=== PATIENT | male | born 1975 | race African-American/Black ===

== ENCOUNTER 2018-07-17 23:23 | Emergency (ER) | payer OTHER ==
--- NOTE | 2018-07-18 03:16 | ED ---
Complex/Multi-Sys Presentation - HPI Summary HPI Summary: This patient is a 42 year old M presenting to ED with a chief complaint of feeling funny since 07/17/182229. Patient took Percocet as prescribed Q4 post teeth extraction on 07/15/18. Patient took the pills every night. Tonight, he took Seroquel at night too close to the Percocet and felt funny. In the room, patient feels much better. The patient rates the pain 0/10 in severity. Symptoms aggravated by nothing. Symptoms alleviated by nothing. Patient denies fever, SOB. - History Of Current Complaint Chief Complaint: EDGeneral Hx Obtained From: Patient Onset/Duration: Lasting Hours - Since 2229 last night, Resolved Aggravating Factor(s): Nothing Alleviating Factor(s): Nothing Associated Signs And Symptoms: Negative: SOB, Fever - Allergies/Home Medications Allergies/Adverse Reactions: Allergies Allergy/AdvReac Type Severity Reaction Status Date / Time No Known Allergies Allergy Verified 07/17/18 23:27 PMH/Surg Hx/FS Hx/Imm Hx Respiratory History: Reports: Other Respiratory Problems/Disorders - sleep apnea Musculoskeletal History: Reports: Hx Scoliosis Denies: Hx Arthritis, Hx Back Problems, Hx Bursitis, Hx Congenital Bone Abnormalities, Hx Fibromyalgia, Hx Gout, Hx Orthopedic Injury, Hx Osteoporosis, Hx Tendonitis, Other Musculoskeletal History Psychiatric History: Reports: Hx Anxiety, Hx Eating Disorder, Hx Depression, Hx Panic Disorder, Hx Post Traumatic Stress Disorder, Hx Inpatient Treatment, Hx Community Mental Health Tx, Hx Bipolar Disorder, Hx Suicide Attempt, Hx of Violent Episodes Against Others Denies: Hx Attention Deficit Hyperactivity Disorder - Surgical History Surgery Procedure, Year, and Place: age 14, deviated seprum\broken nose - Immunization History Date of Tetanus Vaccine: PT NOT ANSWERING QUESTIONS Date of Influenza Vaccine: PT NOT ANSWERING QUESTIONS Infectious Disease History: No Infectious Disease History: Denies: Traveled Outside the US in Last 30 Days - Family History Known Family History: Positive: Non-Contributory - Social History Alcohol Use: None Hx Substance Use: Yes Substance Use Type: Reports: Marijuana Hx Tobacco Use: Yes Smoking Status (MU): Heavy Every Day Tobacco Smoker Review of Systems Negative: Fever Negative: Shortness Of Breath All Other Systems Reviewed And Are Negative: Yes Physical Exam - Summary Physical Exam Summary: Appearance:Well-appearing, Well-nourished, lying in bed comfortable Skin:Warm, dry, no obvious rash Eyes:sclera anicteric, no conjunctival pallor ENT:mucous membranes moist Neck:deferred Respiratory:No signs of respiratory distress Cardiovascular:Appears well perfused, pulses are nml Abdomen:deferred Musculoskeletal:Moving all 4 extremities without obvious discomfort Neurological:Awakeand alert, mentation is normal, speech is fluent and appropriate Psychiatric:affect is normal, does not appear anxious or depressed Triage Information Reviewed: Yes Vital Signs On Initial Exam: Initial Vitals Temp Pulse Resp BP Pulse Ox 98.1 F 120 16 128/76 98 07/17/18 23:25 07/17/18 23:25 07/17/18 23:25 07/17/18 23:25 07/17/18 23:25 Vital Signs Reviewed: Yes Diagnostics - Vital Signs Vital Signs Temp Pulse Resp BP Pulse Ox 07/17/18 23:25 98.1 F 120 16 128/76 98 - Laboratory Lab Statement: Any lab studies that have been ordered have been reviewed, and results considered in the medical decision making process. Complex Multi-Symp Course/Dx Course Of Treatment: This patient is a 42 year old M presenting to ED with a chief complaint of feeling funny since 07/17/182229. Patient will be discharged home with dx of medication reaction. Patient understands and agrees with this plan. - Diagnoses Provider Diagnoses: Medication reaction Discharge - Sign-Out/Discharge Documenting (check all that apply): Patient Departure - Discharge Patient Received Moderate/Deep Sedation with Procedure: No - Discharge Plan Condition: Stable Disposition: HOME Referrals: Dang Perez HAND COKE DRAWER [Primary Care Provider] - Additional Instructions: I would stop taking the percocet for now as it seems like that didn't mix well with your other medication. If you do need to take it again, make sure to take the seroquel at least a couple of hours later. - Billing Disposition and Condition Condition: STABLE Disposition: Home - Attestation Statements Document Initiated by Kylie: Yes Documenting Scribe: Wagner Beard Provider For Whom Kylie is Documenting (Include Credential): Mansoor Gray MD Scribe Attestation: Wagner Wu, scribed for Mansoor Gray MD on 07/19/18 at 0229. Scribe Documentation Reviewed: Yes Provider Attestation: The documentation as recorded by the Wagner murray accurately reflects the service I personally performed and the decisions made by me, Mansoor Gray MD Status of Scribe Document: Viewed
[2018-07-18 03:27] VITALS: BP 117/76
== END 2018-07-18 03:10 | disposition home or self-care (01) ==
LOC: ED 23:23
DX: T43.595A Adverse effect of other antipsychotics and neuroleptics, initial encounter (principal); R68.89 Other general symptoms and signs; Y92.9 Unspecified place or not applicable; F17.200 Nicotine dependence, unspecified, uncomplicated
CPT/HCPCS: 99282

== ENCOUNTER 2018-08-16 21:13 | Inpatient (IN) | payer OTHER ==
--- NOTE | 2018-08-16 22:04 | ED ---
Psychiatric Complaint - HPI Summary HPI Summary: This patient is a 42 year old M presenting to ED with a chief complaint of SI since 08/02/18. He has been very depressed and his therapist recommended he come here. Patient takes Seroquel and Neurontin. Patient reports having plans of overdose. The patient rates the pain 0/10 in severity. Symptoms aggravated by nothing. Symptoms alleviated by nothing. Patient denies fever. - History Of Current Complaint Chief Complaint: EDSuicidal Time Seen by Provider: 08/16/18 21:51 Hx Obtained From: Patient Onset/Duration: Lasting Weeks - 2 weeks, Still Present Character: Depressed Aggravating Factor(s): Nothing Alleviating Factor(s): Nothing Associated Signs And Symptoms: Positive: Social Withdrawal Related History: Positive For: Prior Psychiatric Issues Has Suicidal: Reports: Thoughts, With A Plan - Overdose - Allergies/Home Medications Allergies/Adverse Reactions: Allergies Allergy/AdvReac Type Severity Reaction Status Date / Time No Known Allergies Allergy Verified 08/16/18 21:18 Home Medications: Home Medications lamoTRIgine [Lamotrigine] 200 mg PO BEDTIME 08/17/18 [History Confirmed 08/17/18 ] PMH/Surg Hx/FS Hx/Imm Hx Respiratory History: Reports: Other Respiratory Problems/Disorders - sleep apnea Musculoskeletal History: Reports: Hx Scoliosis Denies: Hx Arthritis, Hx Back Problems, Hx Bursitis, Hx Congenital Bone Abnormalities, Hx Fibromyalgia, Hx Gout, Hx Orthopedic Injury, Hx Osteoporosis, Hx Tendonitis, Other Musculoskeletal History Psychiatric History: Reports: Hx Anxiety, Hx Eating Disorder, Hx Depression, Hx Panic Disorder, Hx Post Traumatic Stress Disorder, Hx Inpatient Treatment, Hx Community Mental Health Tx, Hx Bipolar Disorder, Hx Suicide Attempt, Hx of Violent Episodes Against Others Denies: Hx Attention Deficit Hyperactivity Disorder - Surgical History Surgery Procedure, Year, and Place: age 14, deviated seprum\broken nose - Immunization History Date of Tetanus Vaccine: PT NOT ANSWERING QUESTIONS Date of Influenza Vaccine: PT NOT ANSWERING QUESTIONS Infectious Disease History: No Infectious Disease History: Denies: Traveled Outside the US in Last 30 Days - Family History Known Family History: Positive: Non-Contributory - Social History Alcohol Use: None Hx Substance Use: Yes Substance Use Type: Reports: Marijuana Hx Tobacco Use: Yes Smoking Status (MU): Heavy Every Day Tobacco Smoker Review of Systems Negative: Fever Psychological: Other - SI Positive: Depressed All Other Systems Reviewed And Are Negative: Yes Physical Exam - Summary Physical Exam Summary: VITAL SIGNS: Reviewed. GENERAL: Patient is a well-developed and nourished male who is lying comfortable in the stretcher. Patient is not in any acute respiratory distress. HEAD AND FACE: No signs of trauma. No ecchymosis, hematomas or skull depressions. No sinus tenderness. EYES: PERRLA, EOMI x 2, No injected conjunctiva, no nystagmus. EARS: Hearing grossly intact. Ear canals and tympanic membranes are within normal limits. MOUTH: Oropharynx within normal limits. NECK: Supple, trachea is midline, no adenopathy, no JVD, no carotid bruit, no c- spine tenderness, neck with full ROM CHEST: Symmetric, no tenderness at palpation LUNGS: Clear to auscultation bilaterally. No wheezing or crackles. CVS: Regular rate and rhythm, S1 and S2 present, no murmurs or gallops appreciated. ABDOMEN: Soft, non-tender. No signs of distention. No rebound no guarding, and no masses palpated. Bowel sounds are normal. EXTREMITIES: FROM in all major joints, no edema, no cyanosis or clubbing. NEURO: Alert and oriented x 3. No acute neurological deficits. Speech is normal and follows commands. SKIN: Dry and warm Psych: somewhat withdrawn Triage Information Reviewed: Yes Vital Signs On Initial Exam: Initial Vitals Temp Pulse Resp BP Pulse Ox 98.2 F 104 16 131/79 99 08/16/18 21:16 08/16/18 21:16 08/16/18 21:16 08/16/18 21:16 08/16/18 21:16 Vital Signs Reviewed: Yes Diagnostics - Vital Signs Vital Signs Temp Pulse Resp BP Pulse Ox 08/16/18 21:16 98.2 F 104 16 131/79 99 - Laboratory Result Diagrams: 08/16/18 22:19 08/16/18 22:19 Lab Statement: Any lab studies that have been ordered have been reviewed, and results considered in the medical decision making process. Course/Dx - Course Course Of Treatment: This patient is a 42 year old M presenting to ED with a chief complaint of SI since 08/02/18. Blood work and UA obtained. Patient is medically cleared for [facility] at [facility]. Patient will be voluntarily admitted to [facility] with dx of unspecified depression by Dr. Kramer. Patient understands and agrees with this plan. - Differential Dx/Clinical Impression Provider Diagnosis: Depression Discharge - Sign-Out/Discharge Documenting (check all that apply): Patient Departure - Admit Patient Received Moderate/Deep Sedation with Procedure: No - Discharge Plan Condition: Fair Disposition: ADMITTED TO [facility] Referrals: Dang Perez STATION SUPERINTENDENT [Primary Care Provider] - - Attestation Statements Document Initiated by Scribe: Yes Documenting Scribe: Wagner Beard Provider For Whom Scribe is Documenting (Include Credential): Padmini Robbins MD Scribe Attestation: IWagner, scribed for Padmini Robbins MD on 08/17/18 at 0104. Status of Scribe Document: Ready
[2018-08-16 22:26] LABS: ABS Lymphocytes 0.9 10^3/ul (1.0-4.8); ABS Monocytes 0.6 10^3/ul (0-0.8); ABS Neutrophils 6.9 10^3/ul (1.5-7.7); Eosinophil % 0.5 %; Hematocrit 42 % (42-52); Hemoglobin 14.1 g/dL (14.0-18.0); Lymphocyte % 11.2 %; Mean Corpuscular HGB Conc 34 g/dL (31-36); Mean Corpuscular Hemoglobin 28 pg (27-31); Mean Corpuscular Volume 83 fL (80-94); Mean Platelet Volume 8.1 fL (7.4-10.4); Nucleated Red Blood Cells % 0.1; Platelet Count 197 10^3/uL (150-450); Red Blood Count 5.01 10^6 /uL (4.18-5.48); Red Cell Distribution Width 14 % (10-15); White Blood Count 8.5 10^3/uL (3.5-10.8)
[2018-08-16 22:41] LABS: ALT 24 U/L (7-52); AST 20 U/L (13-39); Albumin 4.6 g/dL (3.2-5.2); Albumin/Globulin Ratio 1.8 (1-3); Alkaline Phosphatase 82 U/L (34-104); Anion Gap 8 mmol/L (2-11); BUN/Creatinine Ratio 10.2 (8-20); Blood Urea Nitrogen 11 mg/dL (6-24); CO2 Carbon Dioxide 30 mmol/L (22-32); Calcium 9.4 mg/dL (8.6-10.3); Chloride 104 mmol/L (101-111); EGFR African American 90.3 (>60); EGFR Non-African American 74.6 (>60); Globulin 2.5 g/dL (2-4); Glucose 127 mg/dL (70-100); Potassium 3.4 mmol/L (3.5-5.0); Sodium 142 mmol/L (135-145); Total Protein 7.1 g/dL (6.4-8.9)
[2018-08-16 22:59] LABS: Acetaminophen < 15 mcg/mL; Alcohol < 10 mg/dL (<10); Salicylate < 2.50 mg/dL (<30)
[2018-08-16 23:14] LABS: TSH (Thyroid Stimulating Horm) 9.78 mcIU/mL (0.34-5.60)
[2018-08-17] MEDS ORDERED: Al Hydrox/Mg Hydrox/Simet LIQ* 30 ML UDC PO PRN (01:58)
[2018-08-17] MEDS ORDERED: Acetaminophen TAB* 325 MG PO PRN (01:58)
[2018-08-17] MEDS ORDERED: lamoTRIgine TAB(*) 100 MG PO SCH (09:00)
[2018-08-17] MEDS: Multivitamins/Minerals TAB PO SCH (11:04)
--- NOTE | 2018-08-17 13:05 | PN ---
BSU: Group Therapy Note - Service Type Service Type: [id number] Group Psychotherapy - Cognitive Behavioral Group Psychotherapy: Tommie was attentive to discussion this morning, presenting with flat and unvarying affect. He briefly responded to prompts to participate, but was not spontaneous in speech.
[2018-08-17 14:53] LABS: Urine Appearance Clear; Urine Bacteria Absent (Absent); Urine Bilirubin Negative (Negative); Urine Blood 1+ (Negative); Urine Color Yellow; Urine Glucose Negative (Negative); Urine Ketones Negative (Negative); Urine Nitrite Negative (Negative); Urine Protein Negative (Negative); Urine Red Blood Cell 2+(6-10/hpf) (Absent); Urine Specific Gravity 1.021 (1.010-1.030); Urine Squamous Epithelial Cell Present (Absent); Urine Urobilinogen Negative (Negative); Urine White Blood Cell Absent (Absent)
[2018-08-17 15:11] LABS: Urine Benzodiazepine Screen None Detected (None Detect); Urine Opiates Screen None Detected (None Detect)
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
[2018-08-17] MEDS ORDERED: QUEtiapine TAB* 300 MG PO SCH (21:00)
[2018-08-18 08:23] LABS: HDL Cholesterol 53.8 mg/dL
[2018-08-18] MEDS: Multivitamins/Minerals TAB PO SCH (09:03)
[2018-08-18 09:40] LABS: Free T4 0.74 ng/dL (0.61-1.12); TSH (Thyroid Stimulating Horm) 5.78 mcIU/mL (0.34-5.60)
[2018-08-18 09:43] LABS: Free T3 4.8 pg/mL (2.5-3.9)
--- NOTE | 2018-08-18 12:34 | PN ---
Subjective - Subjective Date of Service: 08/18/18 Service Type: 23022 Hosp care 25 min moderate complexity Subjective: Patient reports not sleeping last night and inquires about low doses of quetiapine and lamotrigine. We discuss other potential changes, such as lurasidone and prazosin. Patient reports desire to "think on it." Patient reports desire to use meditation and work on "acceptance" in regards to consequences of his actions. He states approximately two months ago, he started re-experiencing night terrors and describes waking up sweating and ready to fight. He states he relapsed this past week by drinking a beer and smoking marijuana. He states this was "stupid" and is able to identify potential scenarios that could have been problematic. Patient validated for his insight and honesty. Objective - General Observations Appearance: Well Groomed Stature: WNL Posture: Slumped Eye Contact: Average Behavior/Activity: Slowed - Interaction Observations Attitude Towards Examiner: Cooperative, Anxious Stated Mood: Dysphoric Affect: Restricted Speech Pattern/Tone: Clear, Appropriate, Quiet Volume Thought Process: Coherent, Impoverished Perception: WNL Thought Content: Depressive, Self-Deprecatory Thought Process: Lethality: Passive Wish Hallucination Type: None Delusion Type: None - Cognitive Function Orientation: A&O x 4 Level of Consciousness: Alert Cognition: WNL Estimated Intelligence: Normal Insight: WNL Judgment Within Normal Limits: No Ability to Make Reasonable Decisions: Serverely Impaired - Medication Compliance Cooperative with Inpatient Medication Regimen: Yes - Group Participation Participates in Group Activities: Yes Assessment - Assessment Merits Inpatient Hospitalization: For Immediate Safety, For Stabilization Inpatient DSM-V Dx: F31.4 Clinical Impression: 42yo male with history of bipolar disorder and PTSD who presented to ED upon recommendation from outpatient therapist due to suicidal ideation and plan to overdose on prescribed medications. He reports frustration with depressive symptoms and the nature of bipolar disorder. He reports severe stressor of social isolation as he is from many of his family members. He has a history of incarceration and significant suicide attempts. He merits hospitalization for immediate safety and stabilization. Plan - Plan Treatment Plan: Name: EMILIA AVINA Birthdate: 1975 [id number] continue acute intensive psychiatric treatment. restart quetiapine and lamotrigine at low doses. patient is considering change to latuda for bipolar depression and addition of prazosin for night terrors. Spoke with hospitalist, Dr Centeno, regarding thyroid panel. Patient has subclinical hypothyroidism, no further recommendations. Continued Medication Management: Start Medication Medications: Current Medications Acetaminophen (Tylenol Tab*) 650 mg PO Q4H PRN PRN Reason: PAIN; OR TEMP >101 Al Hydrox/Mg Hydrox/Simethicone (Maalox Plus*) 30 ml PO Q4H PRN PRN Reason: INDIGESTION Ibuprofen (Motrin Tab*) 600 mg PO Q6H PRN PRN Reason: PAIN Lamotrigine (Lamictal Tab(*)) 100 mg PO BEDTIME JEROD Multivitamins/Minerals (Theragran/Minerals Tab*) 1 tab PO DAILY JEROD Last Admin: 08/18/18 09:03 Dose: 1 tab Quetiapine Fumarate (Seroquel Tab*) 100 mg PO BEDTIME JEROD - Discharge Plan Discharge Plan: Inpatient Hospitalization [facility]
[2018-08-18] MEDS: Ibuprofen TAB* 600 MG PO PRN (19:06)
[2018-08-18] MEDS: lamoTRIgine TAB(*) 100 MG PO SCH (21:06)
[2018-08-18] MEDS: QUEtiapine TAB* 100 MG PO SCH (21:06)
[2018-08-19] MEDS: Multivitamins/Minerals TAB PO SCH (08:02)
[2018-08-19] MEDS: Ibuprofen TAB* 600 MG PO PRN (08:02)
--- NOTE | 2018-08-19 11:00 | PN ---
Subjective - Subjective Date of Service: 08/19/18 Service Type: 64836 Hosp care 15 min low complexity Subjective: Patient reports improved sleep and "better" mood. He states he is utilizing conversation with peers and staff to avoid "being in my head" and refers to having SI and depressive thoughts when alone. He states he experiences fleeting mild anxiety and can use meditation to cope. He inquires about staff pass and staff agree he is appropriate for increased privileges. Objective - General Observations Appearance: Neat Stature: WNL Posture: WNL Eye Contact: Average Behavior/Activity: WNL - Interaction Observations Attitude Towards Examiner: Cooperative, Anxious Stated Mood: Anxious - "better" Affect: Restricted Speech Pattern/Tone: Clear, Appropriate, Quiet Volume Thought Process: Coherent, Circumstantial Perception: WNL Thought Content: Depressive, Self-Deprecatory Thought Process: Lethality: Passive Wish Hallucination Type: None Delusion Type: None - Cognitive Function Orientation: A&O x 4 Level of Consciousness: Alert Cognition: WNL Estimated Intelligence: Normal Insight: WNL Judgment Within Normal Limits: Yes Ability to Make Reasonable Decisions: Mildly Impaired - Medication Compliance Cooperative with Inpatient Medication Regimen: Yes - Group Participation Participates in Group Activities: Yes Assessment - Assessment Merits Inpatient Hospitalization: For Immediate Safety, For Stabilization, For Discharge Planning, Pending Safe DC Plan Inpatient DSM-V Dx: F31.4 Clinical Impression: 42yo male with history of bipolar disorder and PTSD who presented to ED upon recommendation from outpatient therapist due to suicidal ideation and plan to overdose on prescribed medications. He reports frustration with depressive symptoms and the nature of bipolar disorder. He reports severe stressor of social isolation as he is from many of his family members. He has a history of incarceration and significant suicide attempts. He merits hospitalization for immediate safety and stabilization. Plan - Plan Treatment Plan: Name: EMILIA AVINA Birthdate: 1975 [id number] continue acute intensive psychiatric treatment. continue quetiapine and lamotrigine at low doses. patient is considering change to latuda for bipolar depression and addition of prazosin for night terrors. Spoke with hospitalist, Dr Centeno, regarding thyroid panel. Patient has subclinical hypothyroidism, no further recommendations. Continued Medication Management: Consider Medication Medications: Current Medications Acetaminophen (Tylenol Tab*) 650 mg PO Q4H PRN PRN Reason: PAIN; OR TEMP >101 Al Hydrox/Mg Hydrox/Simethicone (Maalox Plus*) 30 ml PO Q4H PRN PRN Reason: INDIGESTION Ibuprofen (Motrin Tab*) 600 mg PO Q6H PRN PRN Reason: PAIN Last Admin: 08/19/18 08:02 Dose: 600 mg Lamotrigine (Lamictal Tab(*)) 100 mg PO BEDTIME [facility] Last Admin: 08/18/18 21:06 Dose: 100 mg Multivitamins/Minerals (Theragran/Minerals Tab*) 1 tab PO DAILY [facility] Last Admin: 08/19/18 08:02 Dose: 1 tab Quetiapine Fumarate (Seroquel Tab*) 100 mg PO BEDTIME [facility] Last Admin: 08/18/18 21:06 Dose: 100 mg - Discharge Plan Discharge Plan: Inpatient Hospitalization
[2018-08-19] MEDS: QUEtiapine TAB* 100 MG PO SCH (22:19)
[2018-08-19] MEDS: lamoTRIgine TAB(*) 100 MG PO SCH (22:20)
[2018-08-20] MEDS: Multivitamins/Minerals TAB PO SCH (08:32)
[2018-08-20] MEDS: Ibuprofen TAB* 600 MG PO PRN ×2 (11:14→20:41)
--- NOTE | 2018-08-20 12:55 | PN ---
Subjective - Subjective Date of Service: 08/20/18 Service Type: [id number] Hosp care 25 min moderate complexity Subjective: Patient discussed "horrible" treatment while at [facility] and in longterm. Patient reports concern about cognitive changes since being incarcerated. He denies head injuries, attributes changes to various medications given especially thorazine. Patient reports decreased processing speed, difficulty being able to express himself due to aphasia and forgetting important dates such as children's birthdays. He denies cannabis use to be a factor in that he did not smoke during incarceration and until recently, had not used cannabis for 6 weeks. He states that his outpatient psychiatrist and he have discussed tests like an MRI. Patient reports readiness for discharge in regards to mood and safety. He is receptive to suggestions, including remaining here over the weekend to fully benefit from milieu and programming. Patient agrees and states he is more depressive and tends to have suicidal thoughts when alone for long periods of time. Objective - General Observations Appearance: Neat Stature: WNL Posture: WNL Eye Contact: Average Behavior/Activity: WNL - Interaction Observations Attitude Towards Examiner: Cooperative, Ingratiating Stated Mood: Dysphoric Affect: Full Speech Pattern/Tone: Clear, Appropriate, Normal Volume Thought Process: Coherent, Goal Directed Perception: WNL Thought Content: WNL Thought Process: Lethality: Passive Wish Hallucination Type: None Delusion Type: None - Cognitive Function Orientation: A&O x 4 Level of Consciousness: Alert Cognition: WNL Estimated Intelligence: Normal Insight: WNL Judgment Within Normal Limits: No Ability to Make Reasonable Decisions: Mildly Impaired - Medication Compliance Cooperative with Inpatient Medication Regimen: Yes - Group Participation Participates in Group Activities: Yes Assessment - Assessment Merits Inpatient Hospitalization: For Immediate Safety, For Stabilization, Pending Safe DC Plan Inpatient DSM-V Dx: F31.4 Clinical Impression: 42yo male with history of bipolar disorder and PTSD who presented to ED upon recommendation from outpatient therapist due to suicidal ideation and plan to overdose on prescribed medications. He reports frustration with depressive symptoms and the nature of bipolar disorder. He reports severe stressor of social isolation as he is from many of his family members. He has a history of incarceration and significant suicide attempts. He merits hospitalization for immediate safety and stabilization. Plan - Plan Treatment Plan: Name: EMILIA AVINA Birthdate: 1975 [id number] continue acute intensive psychiatric treatment. may decrease to q30min and allow staff pass. continue quetiapine and lamotrigine at low doses. obtain brain imaging due to cognitive changes. refer to primary care or dermatology for facial pain Medications: Current Medications Acetaminophen (Tylenol Tab*) 650 mg PO Q4H PRN PRN Reason: PAIN; OR TEMP >101 Al Hydrox/Mg Hydrox/Simethicone (Maalox Plus*) 30 ml PO Q4H PRN PRN Reason: INDIGESTION Ibuprofen (Motrin Tab*) 600 mg PO Q6H PRN PRN Reason: PAIN Last Admin: 08/20/18 11:14 Dose: 600 mg Lamotrigine (Lamictal Tab(*)) 100 mg PO BEDTIME [facility] Last Admin: 08/19/18 22:20 Dose: 100 mg Multivitamins/Minerals (Theragran/Minerals Tab*) 1 tab PO DAILY [facility] Last Admin: 08/20/18 08:32 Dose: Not Given Quetiapine Fumarate (Seroquel Tab*) 100 mg PO BEDTIME [facility] Last Admin: 08/19/18 22:19 Dose: 100 mg - Discharge Plan Discharge Plan: Inpatient Hospitalization Outpatient Program: [facility]
[2018-08-20] MEDS: QUEtiapine TAB* 100 MG PO SCH (20:41)
[2018-08-20] MEDS: lamoTRIgine TAB(*) 100 MG PO SCH (20:41)
[2018-08-21] MEDS: Multivitamins/Minerals TAB PO SCH (10:10)
--- NOTE | 2018-08-21 18:08 | PN ---
Subjective - Subjective Date of Service: 08/21/18 Service Type: 19910 Hosp care 25 min moderate complexity Subjective: Tommie appears clear, pleasant and active on the unit. CT/MRI WNL. Patient reports that he feels much better and safe for being on the unit talking with staffs and other patients. Denies active SI or HI or hallucinations today. Objective - General Observations Appearance: Neat Appears Stated Age: Yes Stature: WNL Posture: WNL Eye Contact: Average Behavior/Activity: WNL - Interaction Observations Attitude Towards Examiner: Cooperative Stated Mood: Euthymic Affect: Full Speech Pattern/Tone: Clear, Appropriate, Normal Volume Thought Process: Coherent, Goal Directed Perception: WNL Thought Content: WNL Hallucination Type: Denies Delusion Type: Denies - Cognitive Function Orientation: A&O x 4 Level of Consciousness: Awake, Alert, Appropriate Cognition: WNL Estimated Intelligence: Normal Insight: WNL Judgment Within Normal Limits: Yes - Medication Compliance Cooperative with Inpatient Medication Regimen: Yes - Group Participation Participates in Group Activities: Yes Assessment - Assessment Merits Inpatient Hospitalization: For Stabilization, For Discharge Planning Inpatient DSM-V Dx: F31.4 Clinical Impression: 42yo male with history of bipolar disorder and PTSD who presented to ED upon recommendation from outpatient therapist due to suicidal ideation and plan to overdose on prescribed medications. He reports frustration with depressive symptoms and the nature of bipolar disorder. He reports severe stressor of social isolation as he is from many of his family members. He has a history of incarceration and significant suicide attempts. He merits hospitalization for immediate safety and stabilization. Plan - Plan Treatment Plan: Name: TOMMIE AVINA Birthdate: 1975 [id number] continue acute intensive psychiatric treatment. may decrease to q30min and allow staff pass. continue quetiapine and lamotrigine at low doses. patient is considering change to latuda for bipolar depression and addition of prazosin for night terrors. obtain brain imaging due to cognitive changes. refer to primary care or dermatology for facial pain Continued Medication Management: Continue Outpt Medication Medications: Current Medications Acetaminophen (Tylenol Tab*) 650 mg PO Q4H PRN PRN Reason: PAIN; OR TEMP >101 Al Hydrox/Mg Hydrox/Simethicone (Maalox Plus*) 30 ml PO Q4H PRN PRN Reason: INDIGESTION Ibuprofen (Motrin Tab*) 600 mg PO Q6H PRN PRN Reason: PAIN Last Admin: 08/20/18 20:41 Dose: 600 mg Lamotrigine (Lamictal Tab(*)) 100 mg PO BEDTIME [facility] Last Admin: 08/20/18 20:41 Dose: 100 mg Multivitamins/Minerals (Theragran/Minerals Tab*) 1 tab PO DAILY [facility] Last Admin: 08/21/18 10:10 Dose: Not Given Quetiapine Fumarate (Seroquel Tab*) 100 mg PO BEDTIME [facility] Last Admin: 08/20/18 20:41 Dose: 100 mg - Discharge Plan Discharge Plan: Outpatient Follow Up Outpatient Program: [facility]
[2018-08-21] MEDS: QUEtiapine TAB* 100 MG PO SCH (20:08)
[2018-08-21] MEDS: lamoTRIgine TAB(*) 100 MG PO SCH (20:09)
[2018-08-21] MEDS: Ibuprofen TAB* 600 MG PO PRN (20:35)
[2018-08-22] MEDS: Ibuprofen TAB* 600 MG PO PRN (07:46)
[2018-08-22] MEDS: Multivitamins/Minerals TAB PO SCH (07:47)
[2018-08-22] MEDS ORDERED: LORazepam TAB(*) 1 MG ONE (10:02)
[2018-08-22] MEDS ORDERED: LORazepam TAB(*) 1 MG PO ONE (11:00)
[2018-08-22] MEDS: lamoTRIgine TAB(*) 100 MG PO SCH (19:40)
[2018-08-22] MEDS: QUEtiapine TAB* 100 MG PO SCH (19:40)
[2018-08-23 08:03] VITALS: BP 121/80
[2018-08-23] MEDS: Multivitamins/Minerals TAB PO SCH (09:01)
[2018-08-23] MEDS ORDERED: LORazepam TAB(*) 1 MG PO ONE (09:03)
--- NOTE | 2018-08-23 15:22 | DCNOTE ---
Subjective - Subjective Service Types: 21627 Hosp DC Day Mgmt simple under 30 min Discharge Date: 08/23/18 Subjective: Patient reports readiness for discharge and states appreciation for services received. He denies SI or passive wish. He reports he is eager to continue with [facility] at [facility]. Patient notified of attempt made to set up new patient appt with [facility]. He states understanding of instructions to phone insurance with desire to change primary care provider then call [facility] to set up appt. Notified of imaging results. Objective - General Observations Appearance: Neat Stature: WNL Posture: WNL Eye Contact: Average Behavior/Activity: WNL - Interaction Observations Attitude Towards Examiner: Cooperative Stated Mood: Euthymic Affect: Bright Speech Pattern/Tone: Clear, Appropriate, Normal Volume Thought Process: Coherent, Goal Directed Perception: WNL Thought Content: WNL Hallucination Type: None Delusion Type: None - Cognitive Function Orientation: A&O x 4 Level of Consciousness: Alert Cognition: WNL Estimated Intelligence: Normal Insight: WNL Judgment Within Normal Limits: Yes - Medication Compliance Cooperative with Inpatient Medication Regimen: Yes - Group Participation Participates in Group Activities: Yes DC Assessment - Assessment Clinical Impression: 42yo male with history of bipolar disorder and PTSD who presented to ED upon recommendation from outpatient therapist due to suicidal ideation and plan to overdose on prescribed medications. He reports frustration with depressive symptoms and the nature of bipolar disorder. He reports severe stressor of social isolation as he is from many of his family members. He has a history of incarceration and significant suicide attempts. He has stabilized in this setting and denies suicidal ideation. Merits Inpatient Hospitalization: No Clear for Discharge: Adequate Clinical Respons, Acceptable Safety Profile Inpatient DSM-V Dx: F31.4 Discharge Planning - Discharge Planning Discharge Plan: Outpatient Follow Up Outpatient Program: [facility] Recommendations for Continuing Care: Medication Management, Psychotherapy, Routine Metabolic Monitoring, Primary Care Followup Medications: quetiapine 100mg qhs lamotrigine 100mg qhs lorazepam 1mg daily prn x3 only Discharge Planning: Prescriptions provided for discharge [x] Yes [] No Follow up care details as per social work arrangements. Patient response to discharge plan: [x] eager for discharge [x] agreeable with discharge plan [] ambivalent about discharge [] disagrees with discharge today
== END 2018-08-23 14:49 | disposition home or self-care (01) | DRG 753 ==
LOC: ED 21:13 → BSU 08-17 01:18
PROVIDERS: ADMIT Psychiatry & Neurology Psychiatry; ATTEND Psychiatry & Neurology Psychiatry
DX: F31.4 Bipolar disorder, current episode depressed, severe, without psychotic features (principal); R45.851 Suicidal ideations; F43.10 Post-traumatic stress disorder, unspecified; F17.210 Nicotine dependence, cigarettes, uncomplicated; F12.90 Cannabis use, unspecified, uncomplicated; Z81.8 Family history of other mental and behavioral disorders; Z79.899 Other long term (current) drug therapy
CPT/HCPCS: 36415; 70450; 70551; 80053; 80061; 80307; 80320; 80329; 81003; 81015; 83036; 84439; 84443; 84481; 85025; 90853; 99222; 99231; 99232; 99238; 99285; A9270-GY; G0480

== ENCOUNTER 2018-09-08 11:38 | Inpatient (IN) | payer OTHER ==
[2018-09-08 12:23] LABS: ABS Eosinophils 0.1 10^3/ul (0-0.6); ABS Lymphocytes 0.8 10^3/ul (1.0-4.8); ABS Monocytes 0.4 10^3/ul (0-0.8); ABS Neutrophils 5.1 10^3/ul (1.5-7.7); Hematocrit 42 % (42-52); Hemoglobin 13.9 g/dL (14.0-18.0); Lymphocyte % 12.2 %; Mean Corpuscular HGB Conc 33 g/dL (31-36); Mean Corpuscular Hemoglobin 28 pg (27-31); Mean Corpuscular Volume 85 fL (80-94); Mean Platelet Volume 7.8 fL (7.4-10.4); Nucleated Red Blood Cells % 0.1; Platelet Count 206 10^3/uL (150-450); Red Blood Count 4.98 10^6 /uL (4.18-5.48); Red Cell Distribution Width 14 % (10-15); White Blood Count 6.4 10^3/uL (3.5-10.8)
[2018-09-08 12:31] LABS: Urine Appearance Clear; Urine Bacteria Absent (Absent); Urine Bilirubin Negative (Negative); Urine Blood 1+ (Negative); Urine Color Straw; Urine Glucose Negative (Negative); Urine Ketones Negative (Negative); Urine Nitrite Negative (Negative); Urine Protein Negative (Negative); Urine Red Blood Cell Trace(0-2/hpf) (Absent); Urine Specific Gravity 1.005 (1.010-1.030); Urine Urobilinogen Negative (Negative); Urine White Blood Cell Trace(0-5/hpf) (Absent)
[2018-09-08 12:44] LABS: ALT 25 U/L (7-52); AST 20 U/L (13-39); Albumin 4.9 g/dL (3.2-5.2); Alkaline Phosphatase 69 U/L (34-104); Anion Gap 4 mmol/L (2-11); Blood Urea Nitrogen 8 mg/dL (6-24); CO2 Carbon Dioxide 29 mmol/L (22-32); Calcium 9.6 mg/dL (8.6-10.3); Chloride 105 mmol/L (101-111); EGFR African American 84.8 (>60); EGFR Non-African American 70.1 (>60); Globulin 2.5 g/dL (2-4); Glucose 83 mg/dL (70-100); Potassium 3.5 mmol/L (3.5-5.0); Sodium 138 mmol/L (135-145); Total Protein 7.4 g/dL (6.4-8.9)
[2018-09-08 12:46] LABS: Urine Benzodiazepine Screen None Detected (None Detect); Urine Opiates Screen None Detected (None Detect)
[2018-09-08 12:52] LABS: Acetaminophen < 15 mcg/mL; Alcohol < 10 mg/dL (<10); Salicylate < 2.50 mg/dL (<30)
[2018-09-08 13:07] LABS: TSH (Thyroid Stimulating Horm) 2.41 mcIU/mL (0.34-5.60)
[2018-09-08] MEDS ORDERED: Al Hydrox/Mg Hydrox/Simet LIQ* 30 ML UDC PO PRN (16:52)
[2018-09-08] MEDS ORDERED: Acetaminophen TAB* 325 MG PO PRN (16:52)
[2018-09-08 17:59] LABS: HIV 4th Generation Negative (Negative)
[2018-09-08] MEDS ORDERED: Ibuprofen TAB* 600 MG PO PRN (18:26)
[2018-09-08] MEDS: lamoTRIgine TAB(*) 100 MG PO SCH (20:03)
[2018-09-08] MEDS: LORazepam TAB(*) 1 MG PO PRN (20:03)
[2018-09-08] MEDS ORDERED: QUEtiapine TAB* 100 MG PO SCH (21:00)
--- NOTE | 2018-09-09 06:29 | ED ---
Psychiatric Complaint - HPI Summary HPI Summary: Pt is a 42 yo M who presents to the ED with feelings of suicidal ideation. He states he is going through a divorce at this time is having thoughts of overdosing. He states he denies the sponsoring Mirian feels safe. Denies any HI. History of depression, no history of anxiety. - History Of Current Complaint Chief Complaint: EDSuicidal Time Seen by Provider: 09/08/18 11:47 Hx Obtained From: Patient Onset/Duration: Gradual Onset Timing: Constant Severity Initially: Moderate Severity Currently: Moderate Character: Depressed Aggravating Factor(s): Nothing Alleviating Factor(s): Nothing Associated Signs And Symptoms: Positive: Negative Related History: Positive For: Prior Psychiatric Issues Has Suicidal: Reports: Thoughts, With A Plan - Risk Factor(s) Completed Suicide Risk Factors: Male - Allergies/Home Medications Allergies/Adverse Reactions: Allergies Allergy/AdvReac Type Severity Reaction Status Date / Time No Known Allergies Allergy Verified 09/08/18 12:24 PMH/Surg Hx/FS Hx/Imm Hx Previously Healthy: Yes Cardiovascular History: Denies: Hx Pacemaker/ICD Respiratory History: Reports: Other Respiratory Problems/Disorders - sleep apnea Musculoskeletal History: Reports: Hx Scoliosis Denies: Hx Arthritis, Hx Back Problems, Hx Bursitis, Hx Congenital Bone Abnormalities, Hx Fibromyalgia, Hx Gout, Hx Orthopedic Injury, Hx Osteoporosis, Hx Tendonitis, Other Musculoskeletal History Sensory History: Denies: Hx Contacts or Glasses, Hx Hearing Aid Opthamlomology History: Denies: Hx Contacts or Glasses Psychiatric History: Reports: Hx Anxiety, Hx Depression, Hx Panic Disorder, Hx Post Traumatic Stress Disorder, Hx Inpatient Treatment, Hx Community Mental Health Tx - [facility], Hx Bipolar Disorder, Hx Suicide Attempt, Hx of Violent Episodes Against Others, Hx Substance Abuse Denies: Hx Attention Deficit Hyperactivity Disorder, Hx Eating Disorder, Hx Schizophrenia - Surgical History Surgery Procedure, Year, and Place: age 14, deviated seprum\\broken nose - Immunization History Date of Tetanus Vaccine: PT NOT ANSWERING QUESTIONS Date of Influenza Vaccine: PT NOT ANSWERING QUESTIONS Infectious Disease History: No Infectious Disease History: Denies: Traveled Outside the [place] in Last 30 Days - Family History Known Family History: Positive: Non-Contributory - Social History Occupation: Employed Part-time Lives: Alone Alcohol Use: None Hx Substance Use: Yes Substance Use Type: Reports: Marijuana Substance Use Comment - Amount & Last Used: "Just started this week, a few times " Hx Tobacco Use: Yes Smoking Status (MU): Heavy Every Day Tobacco Smoker Review of Systems Negative: Fever, Chills, Fatigue, Skin Diaphoresis Negative: Palpitations, Chest Pain Negative: Shortness Of Breath, Cough Genitourinary: Negative Positive: no symptoms reported, see HPI Negative: Arthralgia, Myalgia Neurological: Negative All Other Systems Reviewed And Are Negative: Yes Physical Exam Triage Information Reviewed: Yes Vital Signs On Initial Exam: Initial Vitals Temp Pulse Resp BP Pulse Ox 98.1 F 90 16 124/79 99 09/08/18 11:40 09/08/18 11:40 09/08/18 11:40 09/08/18 11:40 09/08/18 11:40 Vital Signs Reviewed: Yes Appearance: Positive: Well-Appearing, Well-Nourished Skin: Positive: Warm, Skin Color Reflects Adequate Perfusion Head/Face: Positive: Normal Head/Face Inspection Eyes: Positive: EOMI, Conjunctiva Clear Neck: Positive: Supple, No Lymphadenopathy Respiratory/Lung Sounds: Positive: Clear to Auscultation, Breath Sounds Present Cardiovascular: Positive: RRR, Pulses are Symmetrical in both Upper and Lower Extremities Musculoskeletal: Positive: Strength/ROM Intact Neurological: Positive: Speech Normal Psychiatric: Positive: Depressed Diagnostics - Vital Signs Vital Signs Temp Pulse Resp BP Pulse Ox 09/08/18 11:40 98.1 F 90 16 124/79 99 - Laboratory Lab Results: Lab Results 09/08/18 09/08/18 09/08/18 Range/Units 12:00 12:00 12:07 WBC 6.4 (3.5-10.8) 10^3/uL RBC 4.98 (4.18-5.48) 10^6 /uL Hgb 13.9 L (14.0-18.0) g/dL Hct 42 (42-52) % MCV 85 (80-94) fL MCH 28 (27-31) pg MCHC 33 (31-36) g/dL RDW 14 (10-15) % Plt Count 206 (150-450) 10^3/uL MPV 7.8 (7.4-10.4) fL Neut % (Auto) 79.7 % Lymph % (Auto) 12.2 % Blair % (Auto) 6.9 % Eos % (Auto) 1.0 % Baso % (Auto) 0.2 % Absolute Neuts (auto) 5.1 (1.5-7.7) 10^3/ul Absolute Lymphs (auto) 0.8 L (1.0-4.8) 10^3/ul Absolute Monos (auto) 0.4 (0-0.8) 10^3/ul Absolute Eos (auto) 0.1 (0-0.6) 10^3/ul Absolute Basos (auto) 0.0 (0-0.2) 10^3/ul Absolute Nucleated RBC 0.0 10^3/ul Nucleated RBC % 0.1 Sodium (135-145) mmol/L Potassium (3.5-5.0) mmol/L Chloride (101-111) mmol/L Carbon Dioxide (22-32) mmol/L Anion Gap (2-11) mmol/L BUN (6-24) mg/dL Creatinine (0.67-1.17) mg/dL Est GFR ( Amer) (>60) Est GFR (Non-Af Amer) (>60) BUN/Creatinine Ratio (8-20) Glucose (70-100) mg/dL Calcium (8.6-10.3) mg/dL Total Bilirubin (0.2-1.0) mg/dL AST (13-39) U/L ALT (7-52) U/L Alkaline Phosphatase (34-104) U/L Total Protein (6.4-8.9) g/dL Albumin (3.2-5.2) g/dL Globulin (2-4) g/dL Albumin/Globulin Ratio (1-3) TSH (0.34-5.60) mcIU/mL Urine Color Straw Urine Appearance Clear Urine pH 6.0 (5-9) Ur Specific Rewey 1.005 L (1.010-1.030) Urine Protein Negative (Negative) Urine Ketones Negative (Negative) Urine Blood 1+ A (Negative) Urine Nitrate Negative (Negative) Urine Bilirubin Negative (Negative) Urine Urobilinogen Negative (Negative) Ur Leukocyte Esterase Negative (Negative) Urine WBC (Auto) Trace(0-5/hpf) (Absent) Urine RBC (Auto) Trace(0-2/hpf) (Absent) Urine Bacteria Absent (Absent) Urine Glucose Negative (Negative) Salicylates (<30) mg/dL Urine Opiates Screen None detected (None Detect) Acetaminophen mcg/mL Ur Barbiturates Screen None detected (None Detect) Ur Phencyclidine Scrn None detected (None Detect) Ur Amphetamines Screen None detected (None Detect) U Benzodiazepines Scrn None detected (None Detect) Urine Cocaine Screen None detected (None Detect) U Cannabinoids Screen Presumptive positive A (None Detect) Serum Alcohol (<10) mg/dL 09/08/18 Range/Units 12:07 WBC (3.5-10.8) 10^3/uL RBC (4.18-5.48) 10^6 /uL Hgb (14.0-18.0) g/dL Hct (42-52) % MCV (80-94) fL MCH (27-31) pg MCHC (31-36) g/dL RDW (10-15) % Plt Count (150-450) 10^3/uL MPV (7.4-10.4) fL Neut % (Auto) % Lymph % (Auto) % Blair % (Auto) % Eos % (Auto) % Baso % (Auto) % Absolute Neuts (auto) (1.5-7.7) 10^3/ul Absolute Lymphs (auto) (1.0-4.8) 10^3/ul Absolute Monos (auto) (0-0.8) 10^3/ul Absolute Eos (auto) (0-0.6) 10^3/ul Absolute Basos (auto) (0-0.2) 10^3/ul Absolute Nucleated RBC 10^3/ul Nucleated RBC % Sodium 138 (135-145) mmol/L Potassium 3.5 (3.5-5.0) mmol/L Chloride 105 (101-111) mmol/L Carbon Dioxide 29 (22-32) mmol/L Anion Gap 4 (2-11) mmol/L BUN 8 (6-24) mg/dL Creatinine 1.14 (0.67-1.17) mg/dL Est GFR ( Amer) 84.8 (>60) Est GFR (Non-Af Amer) 70.1 (>60) BUN/Creatinine Ratio 7.0 L (8-20) Glucose 83 (70-100) mg/dL Calcium 9.6 (8.6-10.3) mg/dL Total Bilirubin 0.50 (0.2-1.0) mg/dL AST 20 (13-39) U/L ALT 25 (7-52) U/L Alkaline Phosphatase 69 (34-104) U/L Total Protein 7.4 (6.4-8.9) g/dL Albumin 4.9 (3.2-5.2) g/dL Globulin 2.5 (2-4) g/dL Albumin/Globulin Ratio 2.0 (1-3) TSH 2.41 (0.34-5.60) mcIU/mL Urine Color Urine Appearance Urine pH (5-9) Ur Specific Rewey (1.010-1.030) Urine Protein (Negative) Urine Ketones (Negative) Urine Blood (Negative) Urine Nitrate (Negative) Urine Bilirubin (Negative) Urine Urobilinogen (Negative) Ur Leukocyte Esterase (Negative) Urine WBC (Auto) (Absent) Urine RBC (Auto) (Absent) Urine Bacteria (Absent) Urine Glucose (Negative) Salicylates < 2.50 (<30) mg/dL Urine Opiates Screen (None Detect) Acetaminophen < 15 mcg/mL Ur Barbiturates Screen (None Detect) Ur Phencyclidine Scrn (None Detect) Ur Amphetamines Screen (None Detect) U Benzodiazepines Scrn (None Detect) Urine Cocaine Screen (None Detect) U Cannabinoids Screen (None Detect) Serum Alcohol < 10 (<10) mg/dL Result Diagrams: 09/08/18 12:07 09/08/18 12:07 Lab Statement: Any lab studies that have been ordered have been reviewed, and results considered in the medical decision making process. Course/Dx - Course Course Of Treatment: Patient is evaluated for suicidal ideation. Labs and urine obtained. This shows cannabinoids. Patient states he is safe at this time and constant observation was changed to every 15 after approximately 1.5 hours. He is evaluated and will be admitted for depressive disorder. - Differential Dx/Clinical Impression Differential Diagnosis/HQI/PQRI: Positive: Depression, Suicidal Ideation Provider Diagnosis: Major depression Discharge - Sign-Out/Discharge Documenting (check all that apply): Patient Departure All imaging exams completed and their final reports reviewed: No Studies Patient Received Moderate/Deep Sedation with Procedure: No - Discharge Plan Condition: Fair [facility] Disposition and Condition Condition: [facility]IR Disposition: [facility]
[2018-09-09] MEDS: LORazepam TAB(*) 1 MG PO PRN ×2 (09:10→18:18)
[2018-09-09] MEDS: Vitamin THERAPEUTIC TAB PO SCH (09:11)
--- NOTE | 2018-09-09 12:01 | HP ---
PSYCHIATRIC HISTORY AND PHYSICAL: DATE OF ADMISSION: 09/08/18 JUSTIFICATION FOR ADMISSION: The patient is in need of 24-hour supervision and care secondary to kosta cidal ideations with plan of overdosing on prescriptions from home. CHIEF COMPLAINT: "They wanted me to come in but I just couldn't, finally my airline pilot/first officer told liliam miller that I have to." HISTORY OF PRESENT ILLNESS: Tommie is a 42-year-old male with a history of bipolar disorder, PTSD, and cannabis use disorder, who was just discharged from the Behavioral Science Unit on 08/23/18. He now returns to the emergency room on a voluntary basis complaining of suicidal ideat ions with a plan to overdose on his mood stabilizers which he has in his apartment. When the patient was discharged on 08/23/18, he had a plan to begin Intensive Day Treatment Programming at [facility] through the [facility] program. There, his therapist is Eusebio who was contacted for co llateral information. She notes that they have been extremely concerned about the patient, and on , they tried to convince him to come voluntarily to the ED, but he declined to do so. On the d ay of admission, he states that he got a call from his airline pilot/first officer, Mr. Rodgers, who strongly encouraged him to come back to the hospital which he did. He does indicate that he has been taking th e Seroquel and lamotrigine as prescribed by Pratima Stahl, who was his provider here in the hospital during his most recent hospitalization. At that time, she had recommended initiation of lurasidone, but he had declined this agreeing only to continuation of lamotrigine and quetiapine which he had be en taking since release from incarceration in October 2017. He had second thoughts about this afte r discharge and wanted to see his outpatient psychiatrist Dr. Osmin Figueroa, but that provider has been on vacation and was unavailable to see the patient. At this time, he is endorsing several neurovege tative symptoms of depression including early awakening, anhedonia, feelings of guilt, poor energy, l ack of concentration, psychomotor retardation, and thoughts of . His stressors include 2 recent occurrences; 2 weeks ago it was the birthday of his daughter whom he cannot see because of a restrai aarti order against him by his and children. He also discovered 2 weeks ago that his had fi led for divorce. At this time, the patient who has comorbid PTSD is willing to try lurasidone, but o nly with a gentle cross titration and he fears that if he goes off Seroquel too quickly, his insomnia will get worse. He is okay remaining on lamotrigine. We also talked about a trial of prazosin; how ever, he states that his PTSD symptoms are largely under control at this time, and he will defer this problem to later management. The patient is calm and cooperative throughout his examination, althou gh I note that he is somewhat guarded. For a more complete psychosocial history, please refer to the excellent psychiatric H and P dictated by Pratima Stahl, dated 08/17/18. MENTAL STATUS EXAM: The patient is a middle-aged, dark-skinned male with short hair and a b eard. He is wearing a maroon colored tracksuit. He is calm and cooperative, although somewhat guard ed. Speech is slow and measured, but with excellent fluent Icelandic. Mood is depressed with a constr icted affect. The thought process is linear, goal directed. Thought content is significant for miryam ward upset about not being able to see his children and about his pending divorce. He is suicidal with a plan to overdose on medication. He denies homicidality at this time. He denies auditory or visual hallucinations. Insight and judgment are fair given his willingness to take medications and receive treatment. Cognitively, he is awake and alert with what would appeared to be an average intellect. DIAGNOSES: Lingle I: Bipolar disorder type 1, most recent episode depressed, severe, without psychotic features. PTSD. Cannabis use disorder. Lingle II: Deferred. IMPRESSION: The patient is a 42-year-old male with a history of bipolar disorder, posttraumatic stress disorder, and cannabis use disorder, who returns to the hospital within 30 days of his most recent admission, again complaining of suicidal ideations with a plan to overdose on med ications. His outpatient providers at the [facility] program are extremely concerned about him, as is his airline pilot/first officer. We do feel that he warrants voluntary admission at this time. PLAN: The patient is admitted to the adult behavioral health unit where he was placed on q. 15-minut e checks for his own safety. We will continue lamotrigine on 100 mg p.o. q. nightly, but reduce quet iapine from 100 to 50 mg q.h.s. and add a trial of lurasidone 20 mg p.o. q. p.m. with food. Our plan is to cross titrate these medications so that he is on antipsychotic monotherapy with lurasidone. Andie miller is considering use of prazosin for PTSD symptoms, although he would like to delay this for now, not wanting to start more than 1 medication at a time. We will be communicating with the [facility] as well as the patient's airline pilot/first officer to rally social support and make lang re that he has outpatient resources in place. He is housed in his own apartment and has no access to firearms at this time. While he is here, he is certainly encouraged to avail himself all milieu act ivities including individual and group psychotherapy. [id number]/CPS #: [id number]
[2018-09-09 14:05] LABS: Neisseria gonorrhoeae (GC) RNA Negative (Negative)
[2018-09-09] MEDS: Lurasidone(*) 20 MG TAB PO SCH (17:25)
[2018-09-09] MEDS: lamoTRIgine TAB(*) 100 MG PO SCH (20:14)
[2018-09-09] MEDS: QUEtiapine TAB* 25 MG PO SCH (20:14)
[2018-09-10] MEDS: LORazepam TAB(*) 1 MG PO PRN ×2 (06:50→17:32)
[2018-09-10] MEDS: Vitamin THERAPEUTIC TAB PO SCH (08:28)
--- NOTE | 2018-09-10 12:45 | PN ---
Subjective - Subjective Date of Service: 09/10/18 Service Type: [id number] Hosp care 15 min low complexity Subjective: Tommie is seen this morning for follow up in his room. Staff reports indicate that he has been adherent with prescribed medications but appears to be depressed and isolative in his room. "I'm really grateful for the private room. Last time I had roommates...strangers...I just don't think I could handle that now. I think being in [facility] did that to me." He continues to endorse depressed mood and feelings that he would likely try to end his own life if he were discharged back to the community. He tolerated the initial low dose of lurasidone well last night and got some sleep using a lower dose of quetiapine. He is requesting that we be methodical in moving him from one agent to another. "The doctors in long term were giving me crazy stuff like Thorazine and Geodon at high doses. It made me feel like a zombie." He contracts for safety here in the hospital and would like to use the comfort room. Staff notes that he has been doing yoga and meditation exercises in his room appropriately, although he is avoidant of group settings. The patient is informed of this clinician's absence next week and he is agreeable with seeing another doctor in my stead. Objective - General Observations Appearance: Well Groomed Appears Stated Age: Yes Stature: WNL Posture: WNL Eye Contact: Avoidant Behavior/Activity: Slowed - Interaction Observations Attitude Towards Examiner: Cooperative Stated Mood: Dysphoric Affect: Restricted Speech Pattern/Tone: Delayed, Quiet Volume Thought Process: Coherent Perception: WNL Thought Content: Depressive Thought Process: Lethality: Passive Wish Hallucination Type: None Delusion Type: None - Cognitive Function Orientation: A&O x 4 Level of Consciousness: Awake, Alert Cognition: WNL Estimated Intelligence: Normal Insight: WNL Judgment Within Normal Limits: Yes - Medication Compliance Cooperative with Inpatient Medication Regimen: Yes - Group Participation Participates in Group Activities: Yes Assessment - Assessment Merits Inpatient Hospitalization: For Immediate Safety, For Stabilization Inpatient DSM-V Dx: F31.4 Clinical Impression: 42 y.o. , , domiciled, unemployed, male with a history of incarceration, Bipolar Disorder, PTSD and cannabis misuse returns to the hospital on a voluntary status on 09/08/18, after most recent [facility] discharge on 08/23/18, due to continued depressed mood and suicidal thoughts to end his life by overdosing on his medications. BSU: Problem List - Patient Problems (1) Bipolar disorder with severe depression Current Visit: Yes Status: Acute Priority: High Code(s): F31.4 - BIPOLAR DISORD, CRNT EPSD DEPRESS, SEV, W/O PSYCH FEATURES SNOMED Code(s): 330011672 Plan - Plan Treatment Plan: Name: TOMMIE AVINA Birthdate: 1975 [id number] The patient arrived on a regimen of lamotrigine 100mg PO qday and quetiapine 100mg PO qhs. We have continued the lamotrigine unchanged and decreased quetiapine to 50mg at bedtime in preparation for tapering him off this. We has simultaneously initiated a trial of lurasidone 20mg PO qPM, which remains to be titrated to efficacy. He will need to be assigned to a new attending next week in my absence. Continue inpatient treatment. Continued Medication Management: Different Medication Medications: Current Medications Acetaminophen (Tylenol Tab*) 650 mg PO Q4H PRN PRN Reason: PAIN or TEMP > 101 F Al Hydrox/Mg Hydrox/Simethicone (Maalox Plus*) 30 ml PO Q4H PRN PRN Reason: INDIGESTION Hydroxyzine HCl (Atarax Tab*) 50 mg PO BEDTIME PRN PRN Reason: INSOMNIA Ibuprofen (Motrin Tab*) 600 mg PO Q6H PRN PRN Reason: PAIN Lamotrigine (Lamictal Tab(*)) 100 mg PO BEDTIME [facility] Last Admin: 09/09/18 20:14 Dose: 100 mg Lorazepam (Ativan Tab(*)) 1 mg PO BID PRN PRN Reason: ANXIETY Last Admin: 09/10/18 06:50 Dose: 1 mg Lurasidone HCl (Latuda) 20 mg PO 1700 [facility] Last Admin: 09/09/18 17:25 Dose: 20 mg Quetiapine Fumarate (Seroquel Tab*) 50 mg PO BEDTIME [facility] Last Admin: 09/09/18 20:14 Dose: 50 mg - Discharge Plan Discharge Plan: Inpatient Hospitalization Lab Results - Lab Results Lab Results: 07/24/19 07/24/19 07/24/19 12:00 12:00 12:07 WBC 6.4 RBC 4.98 Hgb 13.9 L Hct 42 MCV 85 MCH 28 MCHC 33 RDW 14 Plt Count 206 MPV 7.8 Neut % (Auto) 79.7 Lymph % (Auto) 12.2 [place] % (Auto) 6.9 Eos % (Auto) 1.0 Baso % (Auto) 0.2 Absolute Neuts (auto) 5.1 Absolute Lymphs (auto) 0.8 L Absolute Monos (auto) 0.4 Absolute Eos (auto) 0.1 Absolute Basos (auto) 0.0 Absolute Nucleated RBC 0.0 Nucleated RBC % 0.1 Sodium Potassium Chloride Carbon Dioxide Anion Gap BUN Creatinine Est GFR ( Amer) Est GFR (Non-Af Amer) BUN/Creatinine Ratio Glucose Calcium Total Bilirubin AST ALT Alkaline Phosphatase Total Protein Albumin Globulin Albumin/Globulin Ratio TSH Urine Color Straw Urine Appearance Clear Urine pH 6.0 Ur Specific [place] 1.005 L Urine Protein Negative Urine Ketones Negative Urine Blood 1+ A Urine Nitrate Negative Urine Bilirubin Negative Urine Urobilinogen Negative Ur Leukocyte Esterase Negative Urine WBC (Auto) Trace(0-5/hpf) Urine RBC (Auto) Trace(0-2/hpf) Urine Bacteria Absent Urine Glucose Negative Salicylates Urine Opiates Screen None detected Acetaminophen Ur Barbiturates Screen None detected Ur Phencyclidine Scrn None detected Ur Amphetamines Screen None detected U Benzodiazepines Scrn None detected Urine Cocaine Screen None detected U Cannabinoids Screen Presumptive positive A Serum Alcohol C.trachomatis (Amp Det) HIV 1&2 Ab/P24 Ag 4thGn N.gonorrhoeae (Amp Det) 09/08/18 09/08/18 09/08/18 12:07 12:46 15:46 WBC RBC Hgb Hct MCV MCH MCHC RDW Plt Count MPV Neut % (Auto) Lymph % (Auto) [place] % (Auto) Eos % (Auto) Baso % (Auto) Absolute Neuts (auto) Absolute Lymphs (auto) Absolute Monos (auto) Absolute Eos (auto) Absolute Basos (auto) Absolute Nucleated RBC Nucleated RBC % Sodium 138 Potassium 3.5 Chloride 105 Carbon Dioxide 29 Anion Gap 4 BUN 8 Creatinine 1.14 Est GFR ( Amer) 84.8 Est GFR (Non-Af Amer) 70.1 BUN/Creatinine Ratio 7.0 L Glucose 83 Calcium 9.6 Total Bilirubin 0.50 AST 20 ALT 25 Alkaline Phosphatase 69 Total Protein 7.4 Albumin 4.9 Globulin 2.5 Albumin/Globulin Ratio 2.0 TSH 2.41 Urine Color Urine Appearance Urine pH Ur Specific [place] Urine Protein Urine Ketones Urine Blood Urine Nitrate Urine Bilirubin Urine Urobilinogen Ur Leukocyte Esterase Urine WBC (Auto) Urine RBC (Auto) Urine Bacteria Urine Glucose Salicylates < 2.50 Urine Opiates Screen Acetaminophen < 15 Ur Barbiturates Screen Ur Phencyclidine Scrn Ur Amphetamines Screen U Benzodiazepines Scrn Urine Cocaine Screen U Cannabinoids Screen Serum Alcohol < 10 C.trachomatis (Amp Det) Negative HIV 1&2 Ab/P24 Ag 4thGn Negative N.gonorrhoeae (Amp Det) Negative
[2018-09-10] MEDS: Lurasidone(*) 20 MG TAB PO SCH (17:32)
[2018-09-10] MEDS: lamoTRIgine TAB(*) 100 MG PO SCH (20:13)
[2018-09-10] MEDS: QUEtiapine TAB* 25 MG PO SCH (20:13)
[2018-09-11] MEDS: LORazepam TAB(*) 1 MG PO PRN ×2 (03:40→11:36)
[2018-09-11 08:42] LABS: HDL Cholesterol 46.5 mg/dL
[2018-09-11] MEDS: Lurasidone(*) 20 MG TAB PO SCH (17:22)
[2018-09-11] MEDS: hydrOXYzine HCL TAB* 50 MG PO PRN (20:21)
[2018-09-11] MEDS: QUEtiapine TAB* 25 MG PO SCH (20:23)
[2018-09-11] MEDS: lamoTRIgine TAB(*) 100 MG PO SCH (20:24)
[2018-09-12] MEDS: LORazepam TAB(*) 1 MG PO PRN ×2 (02:46→12:42)
--- NOTE | 2018-09-12 17:43 | PN ---
Subjective - Subjective Date of Service: 09/12/18 Subjective: Tommie endorses improvements in his sleep, mood and absence of suicidal ideation and he contracts for safety. He denies side effects from his prescribed meds. Per staff he has been visible in the milieu and adherent to unit's routines. Objective - General Observations Appearance: Well Groomed Appears Stated Age: Yes Stature: WNL Posture: WNL Eye Contact: Average Behavior/Activity: WNL - Interaction Observations Attitude Towards Examiner: Cooperative Stated Mood: Euthymic Affect: Full Speech Pattern/Tone: Clear, Appropriate Thought Process: Coherent, Goal Directed Perception: WNL Thought Content: WNL Hallucination Type: None Delusion Type: None - Cognitive Function Orientation: A&O x 4 Level of Consciousness: Alert Cognition: WNL Judgment Within Normal Limits: Yes - Medication Compliance Cooperative with Inpatient Medication Regimen: Yes - Group Participation Participates in Group Activities: Yes Assessment - Assessment Inpatient DSM-V Dx: F31.4 Clinical Impression: 42 y.o. , , domiciled, unemployed, male with a history of incarceration, Bipolar Disorder, PTSD and cannabis misuse returns to the hospital on a voluntary status on 09/08/18, after most recent [facility] discharge on 08/23/18, due to continued depressed mood and suicidal thoughts to end his life by overdosing on his medications. Stabilizing in this structured setting Plan - Plan Treatment Plan: Name: TOMMIE AVINA Birthdate: 1975 [id number] The patient arrived on a regimen of lamotrigine 100mg PO qday and quetiapine 100mg PO qhs. We have continued the lamotrigine unchanged and decreased quetiapine to 50mg at bedtime in preparation for tapering him off this. We has simultaneously initiated a trial of lurasidone 20mg PO qPM, which remains to be titrated to efficacy. He will need to be assigned to a new attending next week in my absence. Continue inpatient treatment. Medications: Current Medications Acetaminophen (Tylenol Tab*) 650 mg PO Q4H PRN PRN Reason: PAIN or TEMP > 101 F Al Hydrox/Mg Hydrox/Simethicone (Maalox Plus*) 30 ml PO Q4H PRN PRN Reason: INDIGESTION Hydroxyzine HCl (Atarax Tab*) 50 mg PO BEDTIME PRN PRN Reason: INSOMNIA Last Admin: 09/11/18 20:21 Dose: 50 mg Ibuprofen (Motrin Tab*) 600 mg PO Q6H PRN PRN Reason: PAIN Lamotrigine (Lamictal Tab(*)) 100 mg PO BEDTIME JEROD Last Admin: 09/11/18 20:24 Dose: 100 mg Lorazepam (Ativan Tab(*)) 1 mg PO BID PRN PRN Reason: ANXIETY Last Admin: 09/12/18 12:42 Dose: 1 mg Lurasidone HCl (Latuda) 20 mg PO 1700 JEROD Last Admin: 09/11/18 17:22 Dose: 20 mg Quetiapine Fumarate (Seroquel Tab*) 50 mg PO BEDTIME JEROD Last Admin: 09/11/18 20:23 Dose: 50 mg - Discharge Plan Discharge Plan: Outpatient Follow Up Outpatient Program: [facility]
[2018-09-12] MEDS: Lurasidone(*) 20 MG TAB PO SCH (18:12)
[2018-09-12] MEDS: QUEtiapine TAB* 25 MG PO SCH (20:55)
[2018-09-12] MEDS: lamoTRIgine TAB(*) 100 MG PO SCH (20:55)
[2018-09-13] MEDS: hydrOXYzine HCL TAB* 50 MG PO PRN (05:00)
[2018-09-13 08:56] VITALS: BP 104/83
[2018-09-13] MEDS: LORazepam TAB(*) 1 MG PO PRN (12:28)
--- NOTE | 2018-09-13 14:29 | DS ---
DISCHARGE SUMMARY: DATE OF ADMISSION: 09/08/18 DATE OF DISCHARGE: 09/13/18 DISCHARGE DIAGNOSES: Include: 1. Unspecified bipolar disorder 2. History of posttraumatic stress disorder, cannabis use disorder, and anti- social personality disorder. HISTORY OF PRESENT ILLNESS: The patient had presented to the hospital on as a 42-year-old male who [facility], but had been missing appointments and had a recent admission in early August. He reported symptoms of depression including early awakening, poor energy, thoughts of . The stressors included one occurrence when it was the birthday of his daughter who he cannot see because of a restraining order against him filed by his and children. He also discovered about 2 weeks ago that his had filed for divorce. He had been in the hospital before and was stabilized on Seroquel and lamotrigine which had slowly been titrated up. Latuda was recommended, but he deferred this to Dr. Figueroa at the clinic. He attends [facility], but had missed the programming by missing some groups he said. He was not on the on Latuda when came here. He also attends the [facility], but has somehow managed to persuade them that due to mental health he does not have to attend groups, now he goes to groups at [facility]. He only sees Lemuel LEVINE for substance counselling. He reported that his posttraumatic stress disorder symptoms were largely under control and he has not wanted trial of prazosin. HOSPITAL COURSE: The patient was in the hospital and his mood improved and he denied suicidal ideation. He did have a cross taper with Seroquel ultimately being reduced from 100 to 50 mg. He did not wanted to stop Seroquel because he was afraid he would have trouble sleeping. In the hospital, he had available Ativan which will not be continued and he took hydroxyzine 50 mg at night. He started Latuda 20 mg and continued on Lamictal 100 mg a day. He attended some but not all group programming. The patient did not want to raise Latuda yet, wanting to consult with Dr. Figueroa. He is planning to return home to his apartment in [place] and to continue the [facility] program and at the [facility] partly for his improvement and partly because he is on parole and they want him to continue those programs. He reports that his drug of choice was marijuana. MENTAL STATUS EXAMINATION: On mental status at discharge, he was alert and oriented x3. He denies suicidal ideation. Denies psychosis and is not internally preoccupied. He denies violent ideation. He is euthymic with full affect. Sensorium is clear. Concentration is good. Memory is intact. Judgment is good, insight [id number], and impulse control [id number]. IMPRESSION: A man who completed inpatient stay and is being cross titrated on to Latuda. He has some history of bipolar depression, but this is very much complicated by social isolation and by the consequences of past group home stay and anti-social behavior which has led to a restraining order so he does not see his children. At this point, he is not psychiatrically disabled in anyway and is clear to return to outpatient treatment for anxiety and for substance use problems. DISCHARGE MEDICATIONS: Include: 1. Lamictal 100 mg daily. 2. Latuda 20 mg daily. 3. Hydroxyzine 50 mg at bed. The prognosis is fair. Risk of suicide is low at this time. He had some ideation, but came for help voluntarily and has not had suicidal ideation in the hospital and has many clinical supports in the community. Risk of violence at this time is low. He has not acted violently off late and has strong external control, being on parole and very badly not wanting to return to group home. [id number]/CPS #: [id number] THERESA
== END 2018-09-13 13:29 | disposition home or self-care (01) | DRG 753 ==
LOC: ED 11:38 → BSU 14:03
PROVIDERS: ADMIT Psychiatry & Neurology Psychiatry; ATTEND Psychiatry & Neurology Psychiatry
DX: F31.4 Bipolar disorder, current episode depressed, severe, without psychotic features (principal); R45.851 Suicidal ideations; F60.2 Antisocial personality disorder; F43.10 Post-traumatic stress disorder, unspecified; F12.90 Cannabis use, unspecified, uncomplicated; G47.30 Sleep apnea, unspecified; F41.0 Panic disorder [episodic paroxysmal anxiety]; F17.200 Nicotine dependence, unspecified, uncomplicated; Z91.5 Personal history of self-harm
CPT/HCPCS: 36415; 80053; 80061; 80307; 80320; 80329; 81003; 81015; 83036; 84443; 85025; 87086; 87389; 87491; 87591; 99222; 99231; 99238; 99284; A9270-GY; G0480

== ENCOUNTER → 2018-09-16 12:01 | Emergency (ER) | payer OTHER ==
[~2018-09-16 12:01] MED LIST: Azithromycin TAB* 250 MG PO ONE; Lidocaine 1% MPF ** 5 ML VIAL IM ONE; cefTRIAXone VIAL(*) 250 MG VIAL IM ONE
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
[2018-09-16 14:09] LABS: Rapid HIV 1 Nonreactive (Nonreactive)
[2018-09-16 15:08] VITALS: BP 0/0
[2018-09-17 13:11] LABS: Neisseria gonorrhoeae (GC) RNA Negative (Negative)
== END | disposition home or self-care (01) ==
LOC: ED 12:01
DX: Z72.51 High risk heterosexual behavior (principal); F17.210 Nicotine dependence, cigarettes, uncomplicated
CPT/HCPCS: 36415; 86703; 87491; 87591; 96372; 99284; A9270-GY; J0696

== ENCOUNTER 2018-12-22 11:42 | Emergency (ER) | payer OTHER ==
--- NOTE | 2018-12-22 12:04 | ED ---
Psychiatric Complaint - HPI Summary HPI Summary: Pt is a 43 y/o M presenting to the ED with a chief psychiatric complaint. Pt was at [facility] when they recommended he come in here. He reports increase in recent stress d/t losing his job, causing suicidal thoughts. He feels tired. He does not currently have thoughts of hurting himself. He notes hx of bipolar disorder that he takes daily medications for. - History Of Current Complaint Chief Complaint: EDSuicidal Time Seen by Provider: 12/22/18 11:55 Hx Obtained From: Patient Onset/Duration: Gradual Onset, Lasting Days, Still Present Timing: Days Severity Initially: Moderate Severity Currently: Moderate Character: Depressed Aggravating Factor(s): Recent Stress Alleviating Factor(s): Nothing Associated Signs And Symptoms: Positive: Negative Related History: Positive For: Prior Psychiatric Issues Has Suicidal: Reports: Thoughts Recent Stressor(s): losing his job - Allergies/Home Medications Allergies/Adverse Reactions: Allergies Allergy/AdvReac Type Severity Reaction Status Date / Time No Known Allergies Allergy Verified 09/16/18 12:19 Home Medications: Home Medications Lurasidone(*) [Latuda] 60 mg PO BEDTIME 12/22/18 [History Confirmed 12/22/18] QUEtiapine TAB* [Seroquel 25 MG TAB*] 300 mg PO BEDTIME 12/22/18 [History Confirmed 12/22/18] Quetiapine Fumarate [Quetiapine 100 mg] 100 mg PO DAILY PRN 12/22/18 [History Confirmed 12/22/18] PMH/Surg Hx/FS Hx/Imm Hx Previously Healthy: Yes Cardiovascular History: Denies: Hx Pacemaker/ICD Respiratory History: Reports: Other Respiratory Problems/Disorders - sleep apnea Musculoskeletal History: Reports: Hx Scoliosis Denies: Hx Arthritis, Hx Back Problems, Hx Bursitis, Hx Congenital Bone Abnormalities, Hx Fibromyalgia, Hx Gout, Hx Orthopedic Injury, Hx Osteoporosis, Hx Tendonitis, Other Musculoskeletal History Sensory History: Denies: Hx Contacts or Glasses, Hx Hearing Aid Opthamlomology History: Denies: Hx Contacts or Glasses Psychiatric History: Reports: Hx Anxiety, Hx Depression, Hx Panic Disorder, Hx Post Traumatic Stress Disorder, Hx Inpatient Treatment, Hx Community Mental Health Tx - [facility], Hx Bipolar Disorder, Hx Suicide Attempt, Hx of Violent Episodes Against Others, Hx Substance Abuse Denies: Hx Attention Deficit Hyperactivity Disorder, Hx Eating Disorder, Hx Schizophrenia - Surgical History Surgery Procedure, Year, and Place: age 14, deviated seprum\broken nose - Immunization History Date of Tetanus Vaccine: PT NOT ANSWERING QUESTIONS Date of Influenza Vaccine: PT NOT ANSWERING QUESTIONS Infectious Disease History: No Infectious Disease History: Denies: Traveled Outside the [place] in Last 30 Days - Family History Known Family History: Negative: Diabetes - Social History Alcohol Use: Occasionally Hx Substance Use: Yes Substance Use Type: Reports: Marijuana Hx Tobacco Use: Yes Smoking Status (MU): Heavy Every Day Tobacco Smoker Review of Systems Positive: Fatigue Positive: Depressed, Other - SI All Other Systems Reviewed And Are Negative: Yes Physical Exam - Summary Physical Exam Summary: General: Well appearing, no distress HEENT: PERRL Cardiovascular: Skin is well perfused Pulmonary: No respiratory distress, no tachypnea Abdomen: Non-distended Skin: Warm, pink, dry MSK: No edema Psych: Depressed affect Neuro: A&Ox3 Triage Information Reviewed: Yes Vital Signs On Initial Exam: Initial Vitals Temp Pulse Resp BP Pulse Ox 99.8 F 89 18 132/84 100 12/22/18 11:44 12/22/18 11:44 12/22/18 11:44 12/22/18 11:44 12/22/18 11:44 Vital Signs Reviewed: Yes Procedures - Sedation Patient Received Moderate/Deep Sedation with Procedure: No Diagnostics - Vital Signs Vital Signs Temp Pulse Resp BP Pulse Ox 12/22/18 11:44 99.8 F 89 18 132/84 100 - Laboratory Result Diagrams: 12/22/18 12:12 12/22/18 12:12 Lab Statement: Any lab studies that have been ordered have been reviewed, and results considered in the medical decision making process. Re-Evaluation - Re-Evaluation 1st re-eval Re-Evaluation Time: 14:19 Change: Unchanged Comment: Pt will be d/c'ed with dx of bipolar disorder. Pt is stable for discharge. Course/Dx - Course Course Of Treatment: 43-year-old male with bipolar disorder presents with depression and passive SI in the setting of social stressors. Patient has no medical complaints, will have mental health team evaluate. - Differential Dx/Clinical Impression Provider Diagnosis: Bipolar disorder Discharge ED - Sign-Out/Discharge Documenting (check all that apply): Patient Departure - Discharge Plan Condition: Stable Disposition: HOME Patient Education Materials: Bipolar Disorder (ED), Depression (ED), Suicide Prevention (ED) Referrals: [facility] [Outside] (Please follow up tomorrow 10am for your appointment) Elsi Ortiz PA [Primary Care Provider] - - Billing Disposition and Condition Condition: STABLE Disposition: Home - Attestation Statements Document Initiated by Scribe: Yes Documenting Scribe: Mariah Sutton Provider For Whom Kylie is Documenting (Include Credential): Gerald Contreras MD. Scribe Attestation: I, Mariah Sutton, scribed for Gerald Contreras MD. on 12/22/18 at 1446. Scribe Documentation Reviewed: Yes Provider Attestation: The documentation as recorded by the Mariah murray accurately reflects the service I personally performed and the decisions made by me, Gerald Contreras MD. Status of Scribe Document: Viewed
[2018-12-22 12:32] LABS: ABS Lymphocytes 0.7 10^3/ul (1.0-4.8); ABS Monocytes 0.5 10^3/ul (0-0.8); ABS Neutrophils 5.8 10^3/ul (1.5-7.7); Eosinophil % 0.5 %; Hematocrit 40 % (42-52); Hemoglobin 13.1 g/dL (14.0-18.0); Lymphocyte % 9.9 %; Mean Corpuscular HGB Conc 33 g/dL (31-36); Mean Corpuscular Hemoglobin 28 pg (27-31); Mean Corpuscular Volume 86 fL (80-94); Mean Platelet Volume 8.1 fL (7.4-10.4); Nucleated Red Blood Cells % 0.1; Platelet Count 181 10^3/uL (150-450); Red Blood Count 4.66 10^6 /uL (4.18-5.48); Red Cell Distribution Width 14 % (10-15)
[2018-12-22 12:36] LABS: Urine Appearance Clear; Urine Bacteria Absent (Absent); Urine Bilirubin Negative (Negative); Urine Blood 1+ (Negative); Urine Color Straw; Urine Glucose Negative (Negative); Urine Ketones Negative (Negative); Urine Nitrite Negative (Negative); Urine Protein Negative (Negative); Urine Red Blood Cell Absent (Absent); Urine Specific Gravity 1.001 (1.010-1.030); Urine Urobilinogen Negative (Negative); Urine White Blood Cell Absent (Absent)
--- OUTSIDE RECORDS SUMMARY | 2018-12-22 12:38 | XMS REPORT | Continuity of Care Document ---
:1975 External Reference #:[id number] Author Name Mirlande Marrufo Care Team Providers Name Role Phone HCP given Care Team Information Reuse Technician Unavailable Problems Active Problems Provider Date Tobacco user Elsi Ortiz PA Onset: 12/15/2018 Posttraumatic stress disorder Elsi Ortiz PA Onset: 12/15/2018 Cellulitis and abscess of face Elsi Ortiz PA Onset: 12/15/2018 Bipolar disorder Elsi Ortiz PA Onset: 12/15/2018 Social History Type Date Description Comments Sex Unknown Allergies, Adverse Reactions, Alerts Description No Known Drug Allergies Medications Active Medications SIG Qnty Indications Ordering Provider Date Lamotrigine ER 1 tab po daily Unknown 200mg Tablets ER 24HR Quetiapine Fumarate ER 1 tab po daily Unknown 300mg Tablets ER 24HR Immunizations Description No Information Available Vital Signs Date Vital Result Comment 12/15/2018 8:25am BP Systolic 110 mmHg BP Diastolic 58 mmHg Height 70 inches 5'10" Weight 147.00 lb BMI (Body Mass Index) 21.1 kg/m2 Results Test Acquired Facility Test Result H/L Range Note Date HIV 1&2 p24 12/15/2018 [facility] HIV 4th Nonreactive Nonreactive Screen [phone] Generation Laboratory 12/15/2018 [facility] Syphillis Igg <pending> test finding [phone] W/Reflex RPR Hepatitis C 12/15/2018 [facility] HCV Index 0.06 s/c Antibody [phone] Hepatitis C Antibody Negative Negative GC/Chlamydia Amplified 12/15/2018 [facility] GCCHL Disclaimer (SEE NOTE ) 1 Rna [phone] Chlamydia trachomatis Andreina Negative Negative Neisseria gonorrhoeae (GC) Andreina Negative Negative CBC Auto Diff 12/15/2018 [facility] White Blood 10.7 10^3/uL Normal 3.5-10.8 [phone] Count Red Blood Count 5.44 10^6/uL Normal 4.18-5.48 Hemoglobin 15.4 g/dL Normal 14.0-18.0 Hematocrit 47 % Normal 42-52 Mean Corpuscular Volume 86 fL Normal 80-94 Mean Corpuscular Hemoglobin 28 pg Normal 27-31 Mean Corpuscular HGB Conc 33 g/dL Normal 31-36 Red Cell Distribution Width 13 % Normal 10-15 Platelet Count 218 10^3/uL Normal 150-450 Mean Platelet Volume 8.5 fL Normal 7.4-10.4 Abs Neutrophils 9.1 10^3/uL High 1.5-7.7 Abs Lymphocytes 0.8 10^3/uL Low 1.0-4.8 Abs Monocytes 0.7 10^3/uL Normal 0-0.8 Abs Eosinophils 0.1 10^3/uL Normal 0-0.6 Abs Basophils 0.0 10^3/uL Normal 0-0.2 Abs Nucleated RBC 0.0 10^3/uL Granulocyte % 84.9 % Lymphocyte % 7.8 % Monocyte % 6.2 % Eosinophil % 0.7 % Basophil % 0.4 % Nucleated Red Blood Cells % 0.2 Comp Metabolic Panel 12/15/2018 [facility] Sodium 138 mmol/L Normal 135-145 [phone] Potassium 5.0 mmol/L Normal 3.5-5.0 Chloride 102 mmol/L Normal 101-111 Co2 Carbon Dioxide 30 mmol/L Normal 22-32 Anion Gap 6 mmol/L Normal 2-11 Glucose 91 mg/dL Normal 70-100 Blood Urea Nitrogen 14 mg/dL Normal 6-24 Creatinine 1.09 mg/dL Normal 0.67-1.17 BUN/Creatinine Ratio 12.8 Normal 8-20 Calcium 9.9 mg/dL Normal 8.6-10.3 Total Protein 7.2 g/dL Normal 6.4-8.9 Albumin 5.1 g/dL Normal 3.2-5.2 Globulin 2.1 g/dL Normal 2-4 Albumin/Globulin Ratio 2.4 Normal 1-3 Total Bilirubin 0.70 mg/dL Normal 0.2-1.0 Alkaline Phosphatase 82 U/L Normal 34-104 Alt 39 U/L Normal 7-52 Ast 29 U/L Normal 13-39 Egfr Non- 73.8 >60 Egfr 89.3 >60 2 Laboratory test 12/15/2018 [facility] Hemoglobin A1c 5.3 % Normal 4.0 -5.6 3 finding [phone] (Glyco HGB) Urinalysis 12/15/2018 [facility] Urine Color Yellow Profile [phone] Urine Appearance Clear Urine Specific [place] 1.018 Normal 1.010-1.030 Urine pH 6.0 Normal 5-9 Urine Urobilinogen Negative Negative Urine Ketones Negative Negative Urine Protein Negative Negative Urine Leukocytes Negative Negative Urine Blood 2+ Abnormal Negative Urine Nitrite Negative Negative Urine Bilirubin Negative Negative Urine Glucose Negative Negative Urine White Blood Cell Absent Absent Urine Red Blood Cell 3+(>10/hpf) Abnormal Absent Urine Bacteria Absent Absent Lipid Profile (Trig/Chol/HDL) 12/15/2018 [facility] Triglycerides 41 mg /dL 4 [phone] Cholesterol 143 mg/dL 5 HDL Cholesterol 51.5 mg/dL 6 LDL Cholesterol 83 mg/dL 7 Laboratory test 12/15/2018 [facility] Miscellaneous Test See Comment 8 finding [phone] 1 As with all diagnostic procedures, the laboratory results obtained should be used in conjunction with other clinical information available to the physician, including confirmation by another method, as applicable. 2 Because ethnic data is not always readily available, this report includes an eGFR for both -Americans and non- Americans. The National Kidney Disease Education Program (NKDEP) does not endorse the use of the MDRD equation for patients that are not between the ages of 18 and 70, are , have extremes of body size, muscle mass, or nutritional status, or are non- or non-. According to the National Kidney Foundation, irrespective of diagnosis, the stage of the disease is based on the level of kidney function: Stage Description GFR(mL/min/1.73 m(2)) 1 Kidney damage with normal or decreased GFR 90 2 Kidney damage with mild decrease in GFR 60-89 3 Moderate decrease in GFR 30-59 4 Severe decrease in GFR 15-29 5 Kidney failure <15 (or dialysis) 3 Therapeutic target for the treatment of diabetes mellitus patients is <7% HBA1C, and in selective patients <6.0%. Please refer to [place] [employer] Association diabetic care guidelines for further information. 4 Desirable: <150 Borderline High: 150-199 High: 200-499 Very High: >500 5 Desirable: <200 Borderline High: 200-239 High: >239 6 Low: <40 Desirable: 40-60 High: >60 7 Desirable: <100 Near Optimal: 100-129 Borderline High: 130-159 High: 160-189 Very High: >189 8 Test Result Flag Unit RefValue Syphilis Total Ab w/ Reflex, Nonreactive S No serologic evidence of infection with T. pallidum (syphilis). Repeat testing may be considered in patients with suspected acute or primary syphilis in 2-4 weeks. REFERENCE VALUE Nonreactive Test Performed by: [facility] [place] [address] Registration Officer: Carmelo Josue M.D. Ph.D.; CLIA# [id number] Procedures Date Code Description Status 12/15/2018 51793 Electrocardiogram Complete Completed Medical Devices Description No Information Available Encounters Type Date Location Provider Dx Diagnosis Office Visit 12/15/2018 Main Office Elsi Ortiz PA F31.9 Bipolar disorder, 8:00a unspecified F43.10 Post-traumatic stress disorder, unspecified R00.2 Palpitations L02.01 Cutaneous abscess of face Z72.51 High risk heterosexual behavior F17.210 Nicotine dependence, cigarettes, uncomplicated Z68.21 Body mass index (BMI) 21.0-21.9, adult Assessments Date Code Description Provider 12/15/2018 F31.9 Bipolar disorder, unspecified Elsi Ortiz PA 12/15/2018 F43.10 Post-traumatic stress disorder, unspecified Elsi Ortiz PA 12/15/2018 R00.2 Palpitations Elsi Ortiz PA 12/15/2018 L02.01 Cutaneous abscess of face Elsi Ortiz PA 12/15/2018 Z72.51 High risk heterosexual behavior Elsi Ortiz PA 12/15/2018 F17.210 Nicotine dependence, cigarettes, uncomplicated Elsi Ortiz PA 12/15/2018 Z68.21 Body mass index (BMI) 21.0-21.9, adult Elsi Ortiz PA Plan of Treatment Future Appointment(s):01/15/2019 8:45 am - Elsi Ortiz PA at [id number] - Elsi Ortiz, PAF31.9 Bipolar disorder, qywckdrvtxeX04.10 Post- traumatic stress disorder, mpetudrrhtnN69.2 GxawvdlcjfiqH85.01 Cutaneous abscess of faceZ72.51 High risk heterosexual mqezxpyzI54.210 Nicotine dependence , cigarettes, cqrpeoodfjutvI00.21 Body mass index (BMI) 21.0-21.9, adult Functional Status Description No Information Available Mental Status Description No Information Available Referrals Description No Information Available
[2018-12-22 12:54] LABS: ALT 39 U/L (7-52); AST 28 U/L (13-39); Albumin 4.5 g/dL (3.2-5.2); Albumin/Globulin Ratio 2.4 (1-3); Alkaline Phosphatase 68 U/L (34-104); Anion Gap 4 mmol/L (2-11); Blood Urea Nitrogen 9 mg/dL (6-24); CO2 Carbon Dioxide 32 mmol/L (22-32); Calcium 9.2 mg/dL (8.6-10.3); Chloride 98 mmol/L (101-111); EGFR African American 98.2 (>60); EGFR Non-African American 81.2 (>60); Globulin 1.9 g/dL (2-4); Glucose 84 mg/dL (70-100); Potassium 3.7 mmol/L (3.5-5.0); Sodium 134 mmol/L (135-145); Total Protein 6.4 g/dL (6.4-8.9)
[2018-12-22 13:00] LABS: Urine Benzodiazepine Screen None Detected (None Detect); Urine Opiates Screen None Detected (None Detect)
[2018-12-22 13:17] LABS: Acetaminophen < 15 mcg/mL; Alcohol < 10 mg/dL (<10); Salicylate < 2.50 mg/dL (<30)
[2018-12-22 13:32] LABS: TSH (Thyroid Stimulating Horm) 2.35 mcIU/mL (0.34-5.60)
[2018-12-22 14:47] VITALS: BP 124/78
== END 2018-12-22 14:30 | disposition home or self-care (01) ==
LOC: ED 11:42
DX: F31.9 Bipolar disorder, unspecified (principal); F41.9 Anxiety disorder, unspecified; F43.10 Post-traumatic stress disorder, unspecified; Z79.899 Other long term (current) drug therapy
CPT/HCPCS: 36415; 80053; 80307; 80320; 80329; 81003; 81015; 84443; 85025; 99285; G0480

== ENCOUNTER 2019-01-03 10:28 | Inpatient (IN) | payer OTHER ==
[2019-01-03 11:19] LABS: ABS Eosinophils 0.1 10^3/ul (0-0.6); ABS Lymphocytes 1.1 10^3/ul (1.0-4.8); ABS Monocytes 0.4 10^3/ul (0-0.8); ABS Neutrophils 6.4 10^3/ul (1.5-7.7); Eosinophil % 0.7 %; Hematocrit 43 % (42-52); Hemoglobin 14.6 g/dL (14.0-18.0); Lymphocyte % 13.9 %; Mean Corpuscular HGB Conc 34 g/dL (31-36); Mean Corpuscular Hemoglobin 29 pg (27-31); Mean Corpuscular Volume 85 fL (80-94); Mean Platelet Volume 8.4 fL (7.4-10.4); Platelet Count 191 10^3/uL (150-450); Red Blood Count 5.05 10^6 /uL (4.18-5.48); Red Cell Distribution Width 14 % (10-15); White Blood Count 7.9 10^3/uL (3.5-10.8)
--- NOTE | 2019-01-03 11:24 | ED ---
Psychiatric Complaint - HPI Summary HPI Summary: Pt is a 43 y/o M presenting to the ED with a chief psychiatric complaint. Pt was here in the past for similar sx d/t losing his job and other circumstances, and was d/koby. This past Thursday on 12/31/18, he took Seroquil and something else in an attempt to kill himself. He currently denies pain. - History Of Current Complaint Chief Complaint: EDSuicidal Time Seen by Provider: 01/03/19 11:15 Accompanied By: alone Hx Obtained From: Patient Onset/Duration: Gradual Onset, Lasting Days, Still Present Timing: Days Severity Initially: Moderate Severity Currently: Moderate Character: Depressed Aggravating Factor(s): Recent Stress Alleviating Factor(s): Nothing Associated Signs And Symptoms: Positive: Negative Related History: Positive For: Prior Psychiatric Issues Has Suicidal: Reports: Thoughts - Allergies/Home Medications Allergies/Adverse Reactions: Allergies Allergy/AdvReac Type Severity Reaction Status Date / Time No Known Allergies Allergy Verified 01/03/19 10:32 Home Medications: Home Medications lamoTRIgine TAB(*) [Lamictal TAB(*)] 200 mg PO BEDTIME 01/03/19 [History Confirmed 01/03/19] PMH/Surg Hx/FS Hx/Imm Hx Previously Healthy: Yes Cardiovascular History: Denies: Hx Pacemaker/ICD Respiratory History: Reports: Other Respiratory Problems/Disorders - sleep apnea Musculoskeletal History: Reports: Hx Scoliosis Denies: Hx Arthritis, Hx Back Problems, Hx Bursitis, Hx Congenital Bone Abnormalities, Hx Fibromyalgia, Hx Gout, Hx Orthopedic Injury, Hx Osteoporosis, Hx Tendonitis, Other Musculoskeletal History Sensory History: Denies: Hx Contacts or Glasses, Hx Hearing Aid Opthamlomology History: Denies: Hx Contacts or Glasses Psychiatric History: Reports: Hx Anxiety, Hx Depression, Hx Panic Disorder, Hx Post Traumatic Stress Disorder, Hx Inpatient Treatment, Hx Community Mental Health Tx - [facility], Hx Bipolar Disorder, Hx Suicide Attempt, Hx of Violent Episodes Against Others, Hx Substance Abuse Denies: Hx Attention Deficit Hyperactivity Disorder, Hx Eating Disorder, Hx Schizophrenia - Surgical History Surgery Procedure, Year, and Place: age 14, deviated seprum\\broken nose - Immunization History Date of Tetanus Vaccine: PT NOT ANSWERING QUESTIONS Date of Influenza Vaccine: PT NOT ANSWERING QUESTIONS Infectious Disease History: No Infectious Disease History: Denies: Traveled Outside the [place] in Last 30 Days - Family History Known Family History: Negative: Diabetes - Social History Alcohol Use: None Hx Substance Use: Yes Substance Use Type: Reports: Marijuana Substance Use Comment - Amount & Last Used: "Just started this week, a few times " Hx Tobacco Use: Yes Smoking Status (MU): Heavy Every Day Tobacco Smoker Review of Systems Negative: Myalgia Positive: Depressed All Other Systems Reviewed And Are Negative: Yes Physical Exam - Summary Physical Exam Summary: Constitutional: Well-developed, Well-nourished, Alert. (-) Distressed Skin: Warm, Dry HENT: Normocephalic; Atraumatic Eyes: Conjunctiva normal Neck: Musculoskeletal ROM normal neck. (-) JVD, (-) Stridor, (-) Nuchal rigidity Cardio: Rhythm regular, rate normal, Heart sounds normal; Intact distal pulses; Radial pulses are 2+ and symmetric. (-) Murmur Pulmonary/Chest wall: Effort normal. (-) Respiratory distress, (-) Wheezes, (-) Rales Abd: Soft, (-) tenderness, (-) Distension, (-) Guarding, (-) Rebound Musculoskeletal: (-) Edema Lymph: (-) Cervical adenopathy Neuro: Alert, Oriented x3 Psych: Mood and affect withdrawn. Positive SI Triage Information Reviewed: Yes Vital Signs On Initial Exam: Initial Vitals Temp Pulse Resp BP Pulse Ox 98.8 F 105 15 126/78 99 01/03/19 10:29 01/03/19 10:29 01/03/19 10:29 01/03/19 10:29 01/03/19 10:29 Vital Signs Reviewed: Yes Procedures - Sedation Patient Received Moderate/Deep Sedation with Procedure: No Diagnostics - Vital Signs Vital Signs Temp Pulse Resp BP Pulse Ox 01/03/19 10:29 98.8 F 105 15 126/78 99 - Laboratory Lab Results: Lab Results 01/03/19 Range/Units 11:03 WBC 7.9 (3.5-10.8) 10^3/uL RBC 5.05 (4.18-5.48) 10^6 /uL Hgb 14.6 (14.0-18.0) g/dL Hct 43 (42-52) % MCV 85 (80-94) fL MCH 29 (27-31) pg MCHC 34 (31-36) g/dL RDW 14 (10-15) % Plt Count 191 (150-450) 10^3/uL MPV 8.4 (7.4-10.4) fL Neut % (Auto) 80.2 % Lymph % (Auto) 13.9 % [place] % (Auto) 5.0 % Eos % (Auto) 0.7 % Baso % (Auto) 0.2 % Absolute Neuts (auto) 6.4 (1.5-7.7) 10^3/ul Absolute Lymphs (auto) 1.1 (1.0-4.8) 10^3/ul Absolute Monos (auto) 0.4 (0-0.8) 10^3/ul Absolute Eos (auto) 0.1 (0-0.6) 10^3/ul Absolute Basos (auto) 0.0 (0-0.2) 10^3/ul Absolute Nucleated RBC 0.0 10^3/ul Nucleated RBC % 0.0 Result Diagrams: 01/03/19 11:03 01/03/19 11:03 Lab Statement: Any lab studies that have been ordered have been reviewed, and results considered in the medical decision making process. Re-Evaluation - Re-Evaluation 1st re-eval Re-Evaluation Time: 13:56 Change: Unchanged Comment: Pt will be involuntarily admitted as per Dr. Cerna with dx of unspecified depression. Course/Dx - Course Course Of Treatment: 43 y/o male w BPD p/w SI attempt and continued depression in setting of social stress. - recent visit for similar, was cleared for outpatient. Now w worsening symptoms. Would benefit from admission, I discussed this w karla SOFIA. Plan for eval. Neg salicylate, tylenol. UDS + marijuana - Differential Dx/Clinical Impression Provider Diagnosis: Depression Discharge ED - Sign-Out/Discharge Documenting (check all that apply): Patient Departure - Discharge Plan Condition: Stable Disposition: PSYCHIATRIC FACILITY-[facility] - Billing Disposition and Condition Condition: STABLE Disposition: Psychiatric Facility [facility] - Attestation Statements Document Initiated by Scribe: Yes Documenting Scribe: Mariah Sutton Provider For Whom Scribe is Documenting (Include Credential): Gerald Contreras MD. Scribe Attestation: IMariah, scribed for Gerald Contreras MD. on 01/03/19 at 1450. Scribe Documentation Reviewed: Yes Provider Attestation: The documentation as recorded by the scribe, Mariah Sutton accurately reflects the service I personally performed and the decisions made by me, Gerald Contreras MD. Status of Scribe Document: Viewed
[2019-01-03 11:53] LABS: ALT 25 U/L (7-52); AST 19 U/L (13-39); Albumin 4.9 g/dL (3.2-5.2); Alcohol < 10 mg/dL (<10); Alkaline Phosphatase 72 U/L (34-104); Anion Gap 7 mmol/L (2-11); BUN/Creatinine Ratio 9.6 (8-20); Blood Urea Nitrogen 11 mg/dL (6-24); CO2 Carbon Dioxide 28 mmol/L (22-32); Calcium 9.5 mg/dL (8.6-10.3); Chloride 103 mmol/L (101-111); EGFR African American 84.4 (>60); EGFR Non-African American 69.8 (>60); Globulin 2.5 g/dL (2-4); Glucose 88 mg/dL (70-100); Salicylate < 2.50 mg/dL (<30); Sodium 138 mmol/L (135-145); Total Protein 7.4 g/dL (6.4-8.9)
[2019-01-03 12:06] LABS: TSH (Thyroid Stimulating Horm) 2.21 mcIU/mL (0.34-5.60)
[2019-01-03 12:13] LABS: Acetaminophen < 15 mcg/mL
[2019-01-03 12:17] LABS: Urine Appearance Clear; Urine Color Yellow; Urine Ketones 1+ (Negative); Urine Protein Negative (Negative); Urine Specific Gravity 1.015 (1.010-1.030); Urine Urobilinogen Negative (Negative)
[2019-01-03 12:18] LABS: Urine Bilirubin Negative (Negative); Urine Blood 1+ (Negative); Urine Glucose Negative (Negative); Urine Nitrite Negative (Negative)
[2019-01-03 12:21] LABS: Urine Bacteria Absent (Absent); Urine Red Blood Cell Trace(0-2/hpf) (Absent); Urine White Blood Cell Absent (Absent)
[2019-01-03 12:32] LABS: Urine Benzodiazepine Screen None Detected (None Detect); Urine Opiates Screen None Detected (None Detect)
[2019-01-03] MEDS ORDERED: Al Hydrox/Mg Hydrox/Simet LIQ* 30 ML UDC PO PRN (13:46)
[2019-01-03] MEDS ORDERED: Acetaminophen TAB* 325 MG PO PRN (13:46)
[2019-01-03] MEDS: lamoTRIgine TAB(*) 100 MG PO SCH (20:31)
[2019-01-03] MEDS ORDERED: Lurasidone(*) 60 MG TAB PO SCH (21:00)
[2019-01-03] MEDS ORDERED: chlorproMAZINE TAB* 100 MG PO PRN (21:59)
[2019-01-04] MEDS: hydrOXYzine HCL TAB* 50 MG PO PRN ×3 (01:48→19:42)
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
[2019-01-04] MEDS: Lurasidone(*) 60 MG TAB PO SCH (20:07)
[2019-01-04] MEDS: lamoTRIgine TAB(*) 100 MG PO SCH (20:53)
[2019-01-04] MEDS ORDERED: Prazosin CAP* 1 MG PO SCH (21:00)
[2019-01-04] MEDS ORDERED: QUEtiapine TAB* 300 MG PO SCH (21:00)
[2019-01-05] MEDS: hydrOXYzine HCL TAB* 50 MG PO PRN ×2 (08:45→15:11)
[2019-01-05 09:02] LABS: HDL Cholesterol 51.4 mg/dL
--- NOTE | 2019-01-05 17:12 | PN ---
Subjective - Subjective Date of Service: 01/05/19 Service Type: 52268 Hosp care 25 min moderate complexity Subjective: Patient is dysphoric with blunted affect. He reports severe nausea and decreased appetite as barriers to taking lurasidone. He states that he felt "really bad" after taking prazosin and describes orthostatic hypotension. He is receptive to discussion regarding risks of multiple antipsychotics and benefits of lurasidone over quetiapine. He states he prefers to be weened slowly from quetiapine. Objective - General Observations Appearance: Well Groomed Stature: Thin Posture: WNL Eye Contact: Average - Interaction Observations Attitude Towards Examiner: Cooperative Stated Mood: Dysphoric Affect: Flat Speech Pattern/Tone: Clear, Appropriate, Normal Volume Thought Process: Coherent, Circumstantial Perception: WNL Thought Content: Self-Deprecatory Thought Process: Lethality: Passive Wish Hallucination Type: Denies Delusion Type: Denies - Cognitive Function Orientation: A&O x 4 Level of Consciousness: Alert Cognition: WNL Estimated Intelligence: Normal Insight: WNL Judgment Within Normal Limits: No Ability to Make Reasonable Decisions: Moderately Impaired - Medication Compliance Cooperative with Inpatient Medication Regimen: Yes - Group Participation Participates in Group Activities: Yes Assessment - Assessment Merits Inpatient Hospitalization: For Immediate Safety, For Stabilization Inpatient DSM-V Dx: F43.12 Clinical Impression: 43yo male with a history of bipolar disorder, posttraumatic stress disorder and cannabis dependence, who came to the ED due to SI and failed suicide attempt days prior via overdose on prescribed medications. He has been hospitalized multiple times this year and unfortunately continue to have psychosocial stressors desprite seemingly valiant attempts at recovery. He merits hospitalization for immediate safety and stabilization. Plan - Plan Treatment Plan: Name: EMILIA AVINA Birthdate: 1975 [id number] continue current intensive psychiatric treatment. may decrease to q30min and allow staff pass per RN discretion. decrease quetiapine to 250mg qhs, continue other medications as ordered. collaborate with outpatient providers Continued Medication Management: Start Medication Medications: Current Medications Acetaminophen (Tylenol Tab*) 650 mg PO Q4H PRN PRN Reason: for pain; or Temp >101 F Al Hydrox/Mg Hydrox/Simethicone (Maalox Plus*) 30 ml PO Q4H PRN PRN Reason: INDIGESTION Chlorpromazine HCl (Thorazine Tab*) 100 mg PO Q6H PRN PRN Reason: AGITATION Hydrocortisone (Hytone Cream 1%*) 1 applic TOPICAL TID PRN PRN Reason: itching Hydroxyzine HCl (Atarax Tab*) 50 mg PO Q4H PRN PRN Reason: anxiety Last Admin: 01/05/19 15:11 Dose: 50 mg Ibuprofen (Motrin Tab*) 600 mg PO Q6H PRN PRN Reason: PAIN - MILD Lamotrigine (Lamictal Tab(*)) 200 mg PO BEDTIME [facility] Last Admin: 01/04/19 20:53 Dose: 200 mg Lurasidone HCl (Latuda) 60 mg PO DAILY@1700 [facility] Last Admin: 01/04/19 20:07 Dose: Not Given Quetiapine Fumarate (Seroquel Tab*) 250 mg PO BEDTIME [facility] - Discharge Plan Discharge Plan: Inpatient Hospitalization
[2019-01-05] MEDS: Lurasidone(*) 60 MG TAB PO SCH (17:27)
[2019-01-05] MEDS: Hydrocortisone 1% CREAM* 30 GM TUBE TOPICAL PRN (17:28)
[2019-01-05] MEDS: lamoTRIgine TAB(*) 100 MG PO SCH (20:28)
[2019-01-05] MEDS: QUEtiapine TAB* 100 MG PO SCH (20:29)
[2019-01-06] MEDS: hydrOXYzine HCL TAB* 50 MG PO PRN ×4 (04:32→21:26)
[2019-01-06] MEDS: Hydrocortisone 1% CREAM* 30 GM TUBE TOPICAL PRN ×3 (04:32→21:45)
[2019-01-06] MEDS: Ibuprofen TAB* 600 MG PO PRN ×3 (04:32→21:26)
--- NOTE | 2019-01-06 13:00 | PN ---
BSU: Group Therapy Note - Service Type Service Type: [id number] Group Psychotherapy - Cognitive Behavioral Group Therapy ( CBT):Patient was attentive and participatory in CBT programming this morning, and remained in good behavioral control. Patient expressed positive insights regarding relevant treatment interventions and goals.
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
[2019-01-06] MEDS: Lurasidone(*) 60 MG TAB PO SCH (17:37)
[2019-01-06] MEDS: DOXYcycline CAP(*) 100 MG PO SCH (21:22)
[2019-01-06] MEDS: QUEtiapine TAB* 100 MG PO SCH (21:23)
[2019-01-06] MEDS: lamoTRIgine TAB(*) 100 MG PO SCH (21:23)
[2019-01-07] MEDS: Hydrocortisone 1% CREAM* 30 GM TUBE TOPICAL PRN ×2 (03:14→08:43)
[2019-01-07] MEDS: Ibuprofen TAB* 600 MG PO PRN ×2 (03:15→08:42)
[2019-01-07] MEDS: hydrOXYzine HCL TAB* 50 MG PO PRN ×3 (03:15→12:38)
[2019-01-07] MEDS: DOXYcycline CAP(*) 100 MG PO SCH (08:42)
[2019-01-07 10:00] VITALS: BP 129/87
--- NOTE | 2019-01-07 11:07 | PN ---
BSU: Group Therapy Note - Service Type Service Type: [id number] Group Psychotherapy - Cognitive Behavioral Group Therapy ( CBT):Patient was attentive and participatory in CBT programming this morning, and remained in good behavioral control. Patient expressed positive insights regarding relevant treatment interventions and goals.
== END 2019-01-07 13:32 | disposition home or self-care (01) | DRG 755 ==
LOC: ED 10:28 → BSU 13:46
PROVIDERS: ADMIT Psychiatry & Neurology Psychiatry; ATTEND Psychiatry & Neurology Psychiatry
DX: F43.12 Post-traumatic stress disorder, chronic (principal); R45.851 Suicidal ideations; F31.30 Bipolar disorder, current episode depressed, mild or moderate severity, unspecified; F17.210 Nicotine dependence, cigarettes, uncomplicated; F12.20 Cannabis dependence, uncomplicated; G47.30 Sleep apnea, unspecified; M41.9 Scoliosis, unspecified; F41.9 Anxiety disorder, unspecified; T50.912A Poisoning by multiple unspecified drugs, medicaments and biological substances, intentional self-harm, initial encounter; Z62.810 Personal history of physical and sexual abuse in childhood; Y92.9 Unspecified place or not applicable; Z79.899 Other long term (current) drug therapy; Z81.8 Family history of other mental and behavioral disorders
CPT/HCPCS: 36415; 80053; 80061; 80307; 80320; 80329; 81003; 81015; 83036; 84443; 85025; 90853; 99222; 99232; 99238; 99284; A9270-GY; G0480